=== PATIENT | female | born 1950 | race Caucasian/White ===

== ENCOUNTER 2018-03-30 15:15 | Outpatient (CLI) | payer MEDICARE, OTHER, SELFPAY ==
--- NOTE | 2018-03-30 15:08 | DI.RAD_ITS ---
SYMPTOMS/DIAGNOSIS: EVALUATE RIGHT KNEE PAIN RIGHT KNEE: Comparison is made with September,. There is now severe narrowing of the medial femorotibial joint space with [id number] appearance. There is some flattening of the medial femoral condyle and subchondral cyst formation, as well as prominent spurring. There is resulting varus angulation at the knee. Spurring is also seen at the tibial spines and patellofemoral joint. IMPRESSION: Severe degenerative changes of the medial femorotibial joint.
== END 2018-03-30 15:35 ==
PROVIDERS: PCP Family Medicine; Referring Provider Family Medicine; Visit Provider Student in an Organized Health Care Education/Training Program
DX: M25.561 Pain in right knee (principal); M17.11 Unilateral primary osteoarthritis, right knee; I10 Essential (primary) hypertension
CPT/HCPCS: 73562; 99213; 99214

== ENCOUNTER 2018-05-17 08:37 | Inpatient (IN) | payer MEDICARE, OTHER, SELFPAY ==
[2018-05-17] VITALS (14 sets, daily range): BP systolic 104–147; BP diastolic 37–81; PULSE 65–122; RESP 11–22; TEMP 36.2–36.6; O2SAT 93–97
[2018-05-17] MEDS: Lactated Ringers 1,000 ML 80 ML IV ×3 (09:20→14:48)
[2018-05-17] MEDS: Celecoxib 200 MG CAP 400 MG PO (09:24)
[2018-05-17] MEDS: Acetaminophen 500 MG TAB 1000 MG PO ×3 (09:24→20:39)
[2018-05-17] MEDS: oxyCODONE-CR 10 MG TABCR PO (09:25)
[2018-05-17] MEDS: Gabapentin 300 MG CAP PO ×2 (09:25→21:34)
[2018-05-17] MEDS: Bupivacaine 0.5% Pres-Free 30 ML VIAL (10:25)
[2018-05-17] MEDS: Bupivacaine LIPOSOME/PF 133 MG/10 ML VIAL IJ ×2 (10:25→12:32)
[2018-05-17] MEDS: Normal Saline 20 ML VIAL (12:32)
[2018-05-17] MEDS: Bupivacaine 0.25% Pres-Free 30 ML VIAL (12:32)
[2018-05-17] MEDS: Ketorolac 30 MG/ML VIAL (12:32)
--- NOTE | 2018-05-17 15:31 | NUR.NOTE ---
Nursing Note: 1440: pt arrives to room 205 via stretcher from pacu. pt is alert/oriented. pt has pope draining yellow urine. cryo cuff in place. dressing intact. iv in LH with LR. see vs for info. oriented to call block system.
--- NOTE | 2018-05-17 16:17 | PT.INIE ---
Date of service: 05/17/18 Time of Service: 14:48 PT Notes Inpatient Physical Therapy Evaluation Date: 05/17/2018 Referring Doctor: Dr. Axel Vo PT Orders: PT CONSULT: S/P right TKA Precautions: Fall. Standard. WBAT on right LE. Patient Profile/Admitting Diagnosis: Patient is a 67-year-old female seen today at POD 0 status post right TKA secondary to primary osteoarthritis of right knee. Patient seen for mobilization with weightbearing as tolerated on right LE with walker. No CPM. No knee immobilizer. PMHX: Arthritis, Cardiomyopathy, Hyperlipidemia, HTN, obesity, Status Post Carotid Endarterectomy Social History/Home Situation: Patient lives with in a 1 level house with 12 steps to enter, has an alternate flat entrance inot house through the basement in the wintertime. 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 Equipment Owned/DME: [place]. States that she has a small stool that she uses the tub for bathing. Subjective: Katty states that she feels tingling in both her legs and feet but denies pain. She s agreeable to PT evaluation. Objective: General Observation: Patient seen in bed for PT evaluation IV in the right UE. Steel catheter in place. On continuous oxygen supplementation at 2 L/min. Mental Status: Alert and oriented x3 Pain: 0/10 Vital Signs: 147/72 mmHg, 74 bpm, 18 cycles per minute, 36.4 ?C, oxygen saturation 94% at 2 L/min. ROM: Right Upper Extremity: WFL Left Upper Extremity: WFL Right Lower Extremity: Right AROM for hip flexion 0?95 degrees. Right AROM for knee flexion 0-100 degrees. All measurements taken in supine. Left Lower Extremity: WFL STRENGTH: Right Upper Extremity: WFL Left Upper Extremity: WFL Right Lower Extremity: Hip flexors 3-/5. Knee extensors 3-/5. Knee flexors 3-/5. Ankle dorsiflexors 4+/5. Left Lower Extremity: WFL Bed Mobility/Transfers: Supine to sit: CGA, minimal cues given for safe technique and BUE placement. Sit to supine: CGA, minimal cues given for safe technique and BUE placement. Able to use overhead trapeze and BLE to scoot up in bed without undue discomfort. Gait: Patient completed 3 steps forward and backward with right LE leading using step-to pattern, weight bearing as tolerated on the left LE using FWW. Buckling of right knee noted requiring minimal assist for stabilization by this PT to ensure safety. Balance: Static Sitting: Good Dynamic Sitting: Good Static Standing: Fair Dynamic Standing: Fair Special Tests: Mobility Limitations Standardized Measure [facility] AM-PAC 6 clicks Basic Mobility Inpatient Short Form: Raw Score: 15 CMS SCore: 58% Informed Consent/Education: Patient instructed in purpose of PT consult and plan of care. Assessment: Patient is a 67 year old female referred to physical therapy services with the diagnosis status post right TKA. Patient presents with clinical signs and symptoms consistent with postoperative status, as demonstrated by the following impairment level findings: 1) impaired hip and knee active range of motion on the right side 2) impaired hip and knee muscle group strength on the right side 3) impaired balance skills 4) Decreased activity tolerance 5) Decreased weightbearing on the right LE due to postoperative status Impairments are contributing to the following functional limitations: 1) Increased dependence in performing and mobility tasks 2) increase dependence and transfer tasks 3) Decrease independence in ambulation performance 4) increased completion time for all mobility ADLs Patient is assessed as a Moderate 68113 based on the following: History: 67-year-old female at POD 0 status post right TKA. Comorbidities includes history of cardiomyopathy, hyperlipidemia, hypertension, and obesity. Examination: Functional limitations as noted above above Decision Making: Moderate complexity Goals: Goals X1 week 1. Supine-Sit: Independent 2. Sit-Supine: Independent 3. Sit-Stand : Independent with FWW 4. Stand-Sit: Independent with FWW 5. Bed-Chair: Independent with FWW 6. Chair-Bed: independent with FWW 7. Gait: Independent with FWW for at least 100 feet 8. Stairs: Independent holding onto rails for at least 12 steps 9. Independent with home exercise program 10. Good balance Plan of Care/Treatment Plan: 1-2x/day, 7 days/week x 1 week. Plan of care has been reviewed with the ROLLER SETTER providing the service under Physical Therapy direction. Initiate Physical Therapy intervention for strengthening, bed mobility, transfers, gait, stairs, balance training, use of assistive device. DISCHARGE RECOMMENDATIONS: Home with FWW. Need to consider home health PT services on facility discharge in order to ensure a smooth transition to home and reduce fall risk. TREATMENT CODE/TIME: 75460, 91877, 49748 for 68 minutes from 14:48-15:56. Krystal Agosto, PT, DPT, CLT [facility]
--- NOTE | 2018-05-17 16:24 | IN_ITS ---
Date of service: 05/17/18 Time of Service: 14:48 PT Notes Inpatient Physical Therapy Evaluation Date: 05/17/2018 Referring Doctor: Dr. Aexl Vo PT Orders: PT CONSULT: S/P right TKA Precautions: Fall. Standard. WBAT on right LE. Patient Profile/Admitting Diagnosis: Patient is a 67-year-old female seen today at POD 0 status post right TKA secondary to primary osteoarthritis of right knee. Patient seen for mobilization with weightbearing as tolerated on right LE with walker. No CPM. No knee immobilizer. PMHX: Arthritis, Cardiomyopathy, Hyperlipidemia, HTN, obesity, Status Post Carotid Endarterectomy Social History/Home Situation: Patient lives with in a 1 level house with 12 steps to enter, has an alternate flat entrance inot house through the basement in the wintertime. 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 Equipment Owned/DME: [place]. States that she has a small stool that she uses the tub for bathing. Subjective: Katty states that she feels tingling in both her legs and feet but denies pain. She s agreeable to PT evaluation. Objective: General Observation: Patient seen in bed for PT evaluation IV in the right UE. Steel catheter in place. On continuous oxygen supplementation at 2 L/min. Mental Status: Alert and oriented x3 Pain: 0/10 Vital Signs: 147/72 mmHg, 74 bpm, 18 cycles per minute, 36.4 ?C, oxygen saturation 94% at 2 L/min. ROM: Right Upper Extremity: WFL Left Upper Extremity: WFL Right Lower Extremity: Right AROM for hip flexion 0?95 degrees. Right AROM for knee flexion 0-100 degrees. All measurements taken in supine. Left Lower Extremity: WFL STRENGTH: Right Upper Extremity: WFL Left Upper Extremity: WFL Right Lower Extremity: Hip flexors 3-/5. Knee extensors 3-/5. Knee flexors 3- /5. Ankle dorsiflexors 4+/5. Left Lower Extremity: WFL Bed Mobility/Transfers: Supine to sit: CGA, minimal cues given for safe technique and BUE placement. Sit to supine: CGA, minimal cues given for safe technique and BUE placement. Able to use overhead trapeze and BLE to scoot up in bed without undue disc omfort. Gait: Patient completed 3 steps forward and backward with right LE leading using step-to pattern, weight bearing as tolerated on the left LE using FWW. Buckling of right knee noted requiring minimal assist for stabilization by this PT to ensure safety. Balance: Static Sitting: Good Dynamic Sitting: Good Static Standing: Fair Dynamic Standing: Fair Special Tests: Mobility Limitations Standardized Measure [facility] AM-PAC 6 clicks Basic Mobility Inpatient Short Form: Raw Score: 15 CMS SCore: 58% Informed Consent/Education: Patient instructed in purpose of PT consult and plan of care. Assessment: Patient is a 67 year old female referred to physical therapy services with the diagnosis status post right TKA. Patient presents with clinical signs and symptoms consistent with postoperative status, as demonstrated by the following impairment level findings: 1) impaired hip and knee active range of motion on the right side 2) impaired hip and knee muscle group strength on the right side 3) impaired balance skills 4) Decreased activity tolerance 5) Decreased weightbearing on the right LE due to postoperative status Impairments are contributing to the following functional limitations: 1) Increased dependence in performing and mobility tasks 2) increase dependence and transfer tasks 3) Decrease independence in ambulation performance 4) increased completion time for all mobility ADLs Patient is assessed as a Moderate 41931 based on the following: History: 67-year-old female at POD 0 status post right TKA. Comorbidities includes history of cardiomyopathy, hyperlipidemia, hypertension, and obesity. Examination: Functional limitations as noted above above Decision Making: Moderate complexity Goals: Goals X1 week 1. Supine-Sit: Independent 2. Sit-Supine: Independent 3. Sit-Stand : Independent with FWW 4. Stand-Sit: Independent with FWW 5. Bed-Chair: Independent with FWW 6. Chair-Bed: independent with FWW 7. Gait: Independent with FWW for at least 100 feet 8. Stairs: Independent holding onto rails for at least 12 steps 9. Independent with home exercise program 10. Good balance Plan of Care/Treatment Plan: 1-2x/day, 7 days/week x 1 week. Plan of care has been reviewed with the CHIROPRACTIC PRACTICE MANAGER providing the service under Physical Therapy direction. Initiate Physical Therapy intervention for strengthening, bed mobility, transfers, gait, stairs, balance training, use of assistive device. DISCHARGE RECOMMENDATIONS: Home with FWW. Need to consider home health PT services on facility discharge in order to ensure a smooth transition to home and reduce fall risk. TREATMENT CODE/TIME: 30554, 76818, 80120 for 68 minutes from 14:48-15:56. Krystal Agosto, PT, DPT, CLT [facility]
[2018-05-17] MEDS: Celecoxib 100 MG CAP 200 MG PO (20:39)
[2018-05-17] MEDS: Aspirin 81 MG CHEW PO (20:39)
--- NOTE | 2018-05-17 20:50 | W.PM.OP ---
Date of service: 05/17/18 Time of Service: 13:50 Operative Note DATE OF PROCEDURE: 05/17/18 PRE-OP DIAGNOSIS: Right Knee Arthritis POST-OP DIAGNOSIS: same PROCEDURE: Right Total Knee Arthroplasty with Intraoperative Navigation SURGEON: Axel Vo RESIDENTIAL TREATMENT STAFF: Randal Haynes ANESTHESIA: regional and spinal ESTIMATED BLOOD LOSS: 100 PATHOLOGY: none sent TOURNIQUET TIME: 31 COMPLICATIONS: None Patient was transported to: PACU Patient's condition: stable Implants: 1. Depuy Attune Posterior Stabilized Femoral Component, Size 3 narrow 2. Depuy Attune Fixed Platform Tibial Component, Size 2 3. Depuy Attune 3 x 10 mm fixed, Stabilized Poly 4. Depuy Attune Patellar Component, Size 32 mm Indications: I have seen Madie in clinic for symptoms of knee arthritis, confirmed with radiographic findings. Done has exhausted nonoperative methods and was having significant limitations in daily function and desired better function and less pain. She previously had a left knee replacement with excellent results. I discussed the technical details of a knee replacement. I explained the risks of the procedure to include, but not limited to, bleeding, infection, pain, stiffness, fracture, damage to nerves and vessels, damage to muscles and tendons, loosening, need for repeat procedure, blood clot and cardiopulmonary demise. Despite these risks, Madie elected to proceed. Findings: There was significant signs of arthritis throughout the knee. There are large osteophytes seen around the periphery of the medial tibia with all 3 compartments being involved as well. Procedure Description: Madie was greeted in the preoperative holding area where the correct side was identified and marked. The consent was reviewed with the patient and signed. The history and physical was updated. All questions were answered. Preoperative mediacations were administered: Acetaminophen 1000mg, Celebrex 400mg, Gabapentin 300mg, and Oxycontin 10mg. An adductor canal block was then administered by the anesthesia team in the PACU. Madie was taken back to the operating room. A spinal anesthestic was then administered. The patient was placed into the supine position on the operating room table. A nonsterile tourniquet was placed high onto the leg but only used for cementing. Posts were placed for positioning during the procedure. All bony prominences were well padded. Prophylactic antibiotics in the form of cefazolin were administered. 1g of Tranxemic Acid was given intravenously within 30 minutes of incision. The right leg was then prepped with Chloraprep and draped in a standard fashion with impervious stockinette and extremity drape with Iodine impregnated skin protection. A timeout to confirm correct identity, side and site, procedure, allergies, anesthesia, and medical concerns was performed. With the knee in some flexion, a midline incision was made overlying the knee. Full thickness skin flaps were raised once the extensor mechanism was encountered. These were raised medially and laterally. Any bleeding was controlled with electrocautery. Once the extensor mechanism was fully exposed, a medial parapatellar arthrotomy was performed in a flexed position. All bleeding from the arthrotomy and the geniculate arteries was coagulated. A medial subperiosteal peel was performed with electrocautery to the midcoronal plane. Due to the significant varus deformity the entire medial tibial plateau was exposed. The fat pad was removed while keeping the patellar tendon protected. The anterior distal femur synovium was removed for later visualization. The ACL and PCL were resected and the anterior horn of the lateral meniscus was transected. The knee was then flexed with the patella everted. Large osteophytes from the tibia were removed. Large osteophytes from the femur were removed. A single starting pin was then placed 1cm anterior to the PCL insertion and the notch in the direction of the femoral head. The OrthoAlign device was applied over the pin. It was oriented to be in line with the epicondylar axis and the trochlear groove. It was then pinned into place. The navigation computer was then turned on and calibrated. The distal femur cut was set at 0 degrees varus/valgus and 2.5 degrees flexion. The distal femur cutting guide then was positioned for a 9mm cut. The distal femur was cut with an oscillating saw while protecting the soft tissues. The tibia was then addressed. The OrthoAlign device was placed over the tibial tubercle and medial tibia and secured into position. Once again, OrthoAlign was calibrated and then set for a 0 degree varus/valgus cut and 3 degrees of posterior slope. With this locked into position, the cut thickness stylus was used to assess cut thickness. The medial side, most involved side, was set for a 2mm cut. This was then held in position and pinned into place with 2 additional pins and a cross pin for stability. The medial and lateral collateral ligaments were protected and the cut was performed. With this completed, it was assessed and noted to be of appropriate dimensions. The guide and OrthoAlign was removed. A spacer block was inserted and the knee was brought into extension. The 8 mm spacer block provided full extension, without hyperextension and with stability of both the medial and lateral collateral ligaments was assessed. The pins from the femur and the tibia were then removed. The distal femur was then sized. The anterior stylus was placed onto the lateral ridge of the anterior femur. This indicated a size 3 femur. The external rotation of the guide was adjusted to 3 degrees to match the epicondylar axis, perpendicular to Zavala?s line. The 4-in-1 cutting guide was the placed. The posterior medial femur cut was evaluated and appeared of good thickness. The spacer block was inserted underneath the cutting guide and stability was confirmed in 90 degrees of flexion. An emma wing was used to confirm appropriate position of the anterior cut to avoid notching. This cutting guide was ensured to be flush on the cut surface and then pinned into place with headed pins. While protecting the soft tissues, quad tendon, and collateral ligaments, the anterior and posterior cuts were performed with a saw. The central two pins were removed and the posterior and anterior chamfers were cut next. The notch-cutting guide was placed. This was pinned to lateralize the femoral component as much as possible while keeping it flush on the cut surface. This was then pinned into position. A reciprocating saw was used to make the notch cut. A rasp smoothed the cut surfaces. A trial posterior stabilized femoral component was then inserted, impacted down to the cut surfaces, and the lug holes were drilled. A provisional trial tibial component was placed and the knee was brought through range of motion. The polyethylene was trialed until there was good flexion and extension with excellent stability to the medial and lateral collaterals. The patella was tracking without thumbs. A portion of Mady's tubercle was released to the initial cut which provided some minor laxity with valgus stressing at full extension, approximately 2 mm. The tibial cut surface was fully exposed. The medial and lateral menisci were removed. The tibia was then sized as a 2. The tibia had been previously marked during trialing to correspond to the center of the tibial component to help with rotation. The trial was aligned to this randal, approximately rotated to the medial 1/3rd of the tibial tubercle. The trial was pinned into place. The tibia was prepared with a reamer and a keel punch. The knee was then brought into extension and the patella was measured as 21 mm. Using the patellar clamp and cut guide, this was resected to a flat surface with at least 13mm of thickness remaining. The size 32 mm patella fit the best. This was oriented and then clamped into position. The lugs were drilled. The trial components were removed. The final components, except for the polyethylene were opened on the back table. The periosteal and capsular tissues, especially posteriorly, around the knee were then systematically injected with a periarticular cocktail consisting of 50cc 0.25% Marcaine, 30mg Ketorolac, 20cc of Exparal and 50cc of injectable saline. The tourniquet was then inflated to 275mmHg. The knee was thoroughly irrigated with a pulse lavage and dried. On the back table, with the implants opened, the cement was mixed. 2 batches of antibiotic laden cement were prepared with vacuum assistance. After the cement was ready a small amount was placed on to the back side of the tibial component at the keel. A small amount was placed onto the posterior flange of the femur. Cement was manual pressurized and impregnated into the cut surface of the tibia. The tibial component was then inserted into the cut surface and impacted into position. Excess cement was removed and the component was reimpacted. Again, excess cement was removed and our attention was then turned to the femur. The femoral cut surface was once again dried and cement was manually impacted into the cut surface. The femoral component was lined with the lug holes and impacted. Excess cement was removed. It was ensured to be down against the cut surface. The trial polyethylene was then inserted and the leg was brought out into full extension for the duration of the cement curing process, approximately 15min. Cement was lastly manually impacted into the cut surface of the patella and the patellar button was clamped into position and held. During this process attention was turned to the gutters of the knee and for all interfaces for any excess cement. After the cement had finally cured, approximately 15min, the clamp was removed from the patella and the knee was taken through range of motion. A size 10 mm polyethylene component provided the best range of motion and stability with less than 2mm gapping with medial and lateral stress and full extension without significant hyperextension. The patella was tracking with a no-thumbs technique. The trial poly was removed and once again the knee was checked for any loose, excess, or errant cement. The poly component was then inserted and impacted into position after cleaning and drying the tibial tray. The capsule was then reapproximated with a No. 1 Vicryl at multiple locations. The capsule was finally closed with a No. 2 Stratafix, barbed suture. The tourniquet was then released and the arthrotomy appeared watertight without significant bleeding. The second dosing of 1g TXA was started. Deep tissues were then reapproximated with 0 Vicryl and 2-0 Vicryl. The skin was closed with a running 3-0 Monocryl in a subcuticular fashion. This was reinforced with skin glue. A Mepilex silver dressing was applied along with a [id number] EROS wrap. A CryoCuff was applied. Madie was transferred to the hospital bed without difficulty an suffering no apparent complication. Madie has a good prognosis. Physical therapy will start today and without restrictions, weight-bearing as tolerated. Aspirin 81mg BID will be used for DVT prophylaxis.
[2018-05-18] MEDS: Lactated Ringers 1,000 ML 80 ML IV (02:48)
[2018-05-18 03:40] VITALS: BP 143/61; PULSE 63; RESP 16; TEMP 36.4; O2SAT 96
[2018-05-18] MEDS: HYDROmorphone 2 MG/ML VIAL 0.5 MG IVP ×2 (03:53→23:11)
[2018-05-18] MEDS: Normal Saline Flush 10 ML SYR IV ×2 (03:53→10:06)
[2018-05-18] MEDS: oxyCODONE 5 MG TAB PO ×4 (04:41→15:54)
--- NOTE | 2018-05-18 07:11 | PDOC.CMIN ---
- If Service Date Differs Date of service: 05/18/18 Time of Service: 07:11 Care Management Initial Assess REASON FOR HOSPITALIZATION:: (R) Knee DJD PAST MEDICAL HISTORY/PAST SURGICAL HISTORY:: Arthritis. Cardiomyopathy. Hyperlipidemia. Hypertension. Obesity. Abdominal hysterectomy. ENDARTERECTOMY, CAROTID (02/15/13). Ligation of fallopian tube PREVIOUS FUNCTIONAL STATUS/SOCIAL/FAMILY SUPPORTS:: Madie resides with her Girish in [place], they have been for 10 years. Madie states that she has one son, and her has two sons all whom are supportive. 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 Madie keeps herself busy with latter day activities in the community. She is independent in the community, drives, and manages ADL's CURRENT FUNCTIONAL STATUS:: Currently Madie is sitting up in bed reading when this clinical writer visits this morning. She is pleasant and receptive to discussion. ADVANCE DIRECTIVES:: On file Girish Woodall is agent. Caesar Celeste is alternate Has patient been provided with information about the portal?: Yes Did the patient sign up for the portal?: No CODE STATUS:: Full Code INSURANCE COVERAGE / FINANCIAL ISSUES:: Medicare, [employer] CURRENT HOME/COMMUNITY SERVICES/EQUIPMENT:: Currently Madie has has no services in the community. She has a FWW, Cane, and stool at home. PRIMARY CARE PHYSICIAN:: Dr. Helm POTENTIAL DISCHARGE NEEDS:: F/U appointment with Dr. Vo. PT - Outpatient PT with [facility] [place] PATIENT/FAMILY EDUCATION NEEDS:: Review DC instructions, any limitations, and ongoing DC planning discussion. Discuss 'Ask Me Three' ANTICIPATED BARRIERS TO DISCHARGE:: None identified at this time. TRANSPORTATION:: Via private vehicle with PLAN:: Madie will return home once medically cleared with outpatient PT through [facility] in [place]. Madie has all necessary DME at this time. She will F/U with Dr. Vo and plan of care as prescribed. Girish to transport when ready.
--- NOTE | 2018-05-18 07:31 | INITIAL_ITS ---
- If Service Date Differs Date of service: 05/18/18 Time of Service: 07:11 Care Management Initial Assess REASON FOR HOSPITALIZATION:: (R) Knee DJD PAST MEDICAL HISTORY/PAST SURGICAL HISTORY:: Arthritis. Cardiomyopathy. Hyperlipidemia. Hypertension. Obesity. Abdominal hysterectomy. ENDARTERECTOMY, CAROTID (02/15/13). Ligation of fallopian tube PREVIOUS FUNCTIONAL STATUS/SOCIAL/FAMILY SUPPORTS:: Madie resides with her mike Stout in [place], they have been for 10 years. Madie states that she has one son, and her has two sons all whom are supportive. 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 Madie keeps herself busy with caodaism activities in the community. She is independent in the community, drives, and manages ADL's CURRENT FUNCTIONAL STATUS:: Currently Madie is sitting up in bed reading when this medical writer visits this morning. She is pleasant and receptive to discussion. ADVANCE DIRECTIVES:: On file Girish Woodall is agent. Caesar Celeste is alternate Has patient been provided with information about the portal?: Yes Did the patient sign up for the portal?: No CODE STATUS:: Full Code INSURANCE COVERAGE / FINANCIAL ISSUES:: Medicare, [employer] CURRENT HOME/COMMUNITY SERVICES/EQUIPMENT:: Currently Madie has has no services in the community. She has a FWW, Cane, and stool at home. PRIMARY CARE PHYSICIAN:: Dr. Helm POTENTIAL DISCHARGE NEEDS:: F/U appointment with Dr. Vo. PT - Outpatient PT with [facility] [place] PATIENT/FAMILY EDUCATION NEEDS:: Review [place] instructions, any limitations, and ongoing DC planning discussion. Discuss 'Ask Me Three' ANTICIPATED BARRIERS TO DISCHARGE:: None identified at this time. TRANSPORTATION:: Via private vehicle with PLAN:: Madie will return home once medically cleared with outpatient PT through [facility] in [place]. Madie has all necessary DME at this time. She will F/U with Dr. Vo and plan of care as prescribed. Girish to transport when ready.
[2018-05-18 08:05] VITALS: BP 146/78; PULSE 69; RESP 18; TEMP 36.5; O2SAT 96
[2018-05-18] MEDS: Celecoxib 100 MG CAP 200 MG PO ×2 (08:12→19:40)
[2018-05-18] MEDS: Lisinopril 20 MG TAB 40 MG PO (08:13)
[2018-05-18] MEDS: Multivitamin TAB 1 TAB PO (08:13)
[2018-05-18] MEDS: Acetaminophen 500 MG TAB 1000 MG PO ×3 (08:13→19:40)
[2018-05-18] MEDS: Hydrochlorothiazide 25 MG TAB PO (08:13)
[2018-05-18] MEDS: Atorvastatin 10 MG TAB PO (08:13)
[2018-05-18] MEDS: Aspirin 81 MG CHEW PO ×2 (08:14→19:40)
[2018-05-18] MEDS: Docusate Sodium 100 MG CAP PO (08:14)
[2018-05-18 11:47] VITALS: BP 146/78; PULSE 69; RESP 18; TEMP 36.5; O2SAT 97
--- NOTE | 2018-05-18 13:43 | PT.INTREAT ---
Date of service: 05/18/18 Time of Service: 01:10 PT Notes Inpatient Physical Therapy Treatment Note [facility] Date: 05/18/18 PRECAUTIONS: WBAT R LE SUBJECTIVE: Pt reports that she just had mauro medication not too long ago so she is doing well this afternoon. OBJECTIVE: Sit-stand: SBA Stand-sit: SBA GAIT Assistive Device: FWW Weight bearing: WBAT R LE Assist: SBA Distance: 150ft THEREX: Pt completed LE ther ex while seated as per flow sheet. ASSESSMENT: Pt tolerated today's session well. Pt was able to tolerate more ambulation today and was motivated during her session. PLAN: Cont as per PT POC. TREATMENT CODE/TIME: 1:10-1:30 (20) TA
--- NOTE | 2018-05-18 14:36 | PT.INTREAT ---
Date of service: 05/18/18 Time of Service: 14:36 PT Notes Inpatient Physical Therapy Treatment Note [facility] Date: 05/18/18 PRECAUTIONS: WBAT R SUBJECTIVE: Madie states that she is feeling more clear than yesterday afternoon. She is agreeable to participating in PT. OBJECTIVE: PAIN: No complaints of pain BED MOBILITY/TRANSFERS Supine?sit: S Sit-stand: SBA Stand-sit: SBA GAIT Assistive Device: FWW Weight bearing: WBAT R Assist: SBA Distance: 100' THEREX: Patient completed a lower extremity strengthening and stabilization program, in a supine position, as per flow sheet. Patient's right knee AROM is 0-110 degrees. Patient ends with cryocuff to right knee ASSESSMENT: Patient tolerated session without complaint. Patient was able to tolerate a progression in gait distance with FWW support and SBA. Patient would benefit from continued gait and transfer training as well as strengthening for improved mobility. PLAN: Continue with PTs POC TREATMENT CODE/TIME: Session 1: 30 minutes; 21835 x2
--- NOTE | 2018-05-18 14:48 | CHAPLAIN ---
Madie was sitting up in her chair when I visited. She was very pleasant and easily engaged in a conversation. She is a member of the [employer] in [place]. Her vp data just returning from a trip, so Madie said he didn't want to ask him to visit since she is likely going home tomorrow. This is Madie's second knee surgery, so she said she knew what what to expect.
[2018-05-18 15:56] VITALS: BP 133/79; PULSE 60; RESP 18; TEMP 36.5; O2SAT 98
--- NOTE | 2018-05-18 17:23 | PHARADMIT ---
Admission Pharmacy Clinical Review RIGHT KNEEE DJD Code Status Full Code Current Weight Wgt-76 kg Renally Cleared and Narrow Therapeutic Index Meds CrCl~ 38.2 ML/min Meds-OK QTc Value / Action Taken QTc-425 na BP Control, Fever BP- 133/79 na Electrolytes reviewed none DVT Prophylaxis ASA Opiate Usage / Scheduled Bowel Regimen Ordered Yes Yes Plt/SCr for Heparin / Enoxaparin none none H/H stable, WBC/Bands none Antibiotic appropriateness Cefazolin Cultures and Sensitivities none Surgical ABX d/c within 24 hr Yes DM control / Insulin Dosing NA Heart Failure (Check EF%) (EROS's, B-Block, Diuretics) HCTZ, Lisinopril IV to PO Switch no Home Meds Reviewed Yes Home Meds Not Ordered Diclofenac, Misoprostol, Comments
[2018-05-18 20:23] VITALS: BP 135/54; PULSE 64; RESP 18; TEMP 36.6; O2SAT 95
--- NOTE | 2018-05-18 21:06 | W.PM.PROGNOT ---
Date of Service Date of service: 05/18/18 Time of Service: 12:07 Assessment and Plan (1) Osteoarthritis of right knee: Current visit: No Status: Acute Madie is a 67-year-old status post right knee replacement. She is doing well. She has been able to ambulate some. She does report having some apprehension and concern about stairs. We will continue to work with physical therapy. Her vital signs are stable. Continue aspirin for DVT prophylaxis. Likely discharge home tomorrow. Qualifiers: Osteoarthritis type: primary Qualified Code(s): M17.11 - Unilateral primary osteoarthritis, right knee Subjective Interval history since last seen: Madie reports been doing well. She has no major pain complaints. She has been able to ambulate. She denies any numbness or tingling. She has no chest pain or shortness of breath. Exam Narrative Exam Narrative: No acute distress. Alert and oriented x3. Evaluation of the right knee shows a clean dry and intact dressing. She is able to straight leg raise. She has intact ankle dorsiflexion and plantar flexion as well as great toe extension and flexion. Sensation intact light touch over the superficial and deep peroneal nerves and tibial nerve. Objective Objective Clinical Data: Vital Signs Temperature 36.6 C 05/18/18 20:23 Temperature Source Tympanic 05/18/18 20:23 Pulse 64 05/18/18 20:23 Pulse Rhythm Regular 05/18/18 20:28 Respiratory Rate 18 05/18/18 20:23 Respiratory Effort Non-Labored 05/18/18 20:28 Respiratory Depth Normal 05/18/18 20:28 Respiratory Pattern Normal 05/18/18 20:28 Blood Pressure 135/54 L 05/18/18 20:23 Pulse Oximetry 95 05/18/18 20:23 Respiratory End-tidal CO2 34 05/17/18 13:50 Oxygen Delivery Method Room Air 05/18/18 20:23 Oxygen Flow Rate 0 05/18/18 20:23 Pain Level 5 05/18/18 19:40 Comment 05/18/18 03:40 Intake & Output 05/17/18 05/18/18 05/18/18 23:59 11:59 23:59 Intake Total 1776.333 / 5702.309 0741 / 2762 590 / 2762 Output Total 1450 / 1450 750 / 1700 950 / 1700 Balance 326.333 / 715.981 7427 / 1062 -360 / 1062 Intake: IV 1776.333 / 5258.391 8488 / 1572 100 / 1572 Oral 700 / 1190 490 / 1190 Output: Urine 1350 / 1350 750 / 1700 950 / 1700 Estimated Blood Loss 100 / 100 Other: Urine Color Yellow Yellow Yellow Urine Appearance Clear Clear Clear Urine Odor None Emesis Description None Voiding Methods Toilet
--- NOTE | 2018-05-18 21:12 | PGE_ITS ---
Date of Service Date of service: 05/18/18 Time of Service: 12:07 Assessment and Plan (1) Osteoarthritis of right knee: Current visit: No Status: Acute Madie is a 67-year-old status post right knee replacement. She is doing well. She has been able to ambulate some. She does report having some apprehension and concern about stairs. We will continue to work with physical therapy. Her vital signs are stable. Continue aspirin for DVT prophylaxis. Likely discharge home tomorrow. Qualifiers: Osteoarthritis type: primary Qualified Code(s): M17.11 - Unilateral primary osteoarthritis, right knee Subjective Interval history since last seen: Madie reports been doing well. She has no major pain complaints. She has been able to ambulate. She denies any numbness or tingling. She has no chest pain or shortness of breath. Exam Narrative Exam Narrative: No acute distress. Alert and oriented x3. Evaluation of the right knee shows a clean dry and intact dressing. She is able to straight leg raise. She has intact ankle dorsiflexion and plantar flexion as well as great toe extension and flexion. Sensation intact light touch over the superficial and deep peroneal nerves and tibial nerve. Objective Objective Clinical Data: Vital Signs Temperature 36.6 C 05/18/18 20:23 Temperature Source Tympanic 05/18/18 20:23 Pulse 64 05/18/18 20:23 Pulse Rhythm Regular 05/18/18 20:28 Respiratory Rate 18 05/18/18 20:23 Respiratory Effort Non-Labored 05/18/18 20:28 Respiratory Depth Normal 05/18/18 20:28 Respiratory Pattern Normal 05/18/18 20:28 Blood Pressure 135/54 L 05/18/18 20:23 Pulse Oximetry 95 05/18/18 20:23 Respiratory End-tidal CO2 34 05/17/18 13:50 Oxygen Delivery Method Room Air 05/18/18 20:23 Oxygen Flow Rate 0 05/18/18 20:23 Pain Level 5 05/18/18 19:40 Comment 05/18/18 03:40 Intake & Output 05/17/18 05/18/18 05/18/18 23:59 11:59 23:59 Intake Total 1776.333 / 8246.275 1051 / 2762 590 / 2762 Output Total 1450 / 1450 750 / 1700 950 / 1700 Balance 326.333 / 648.800 0805 / 1062 -360 / 1062 Intake: IV 1776.333 / 4268.766 2260 / 1572 100 / 1572 Oral 700 / 1190 490 / 1190 Output: Urine 1350 / 1350 750 / 1700 950 / 1700 Estimated Blood Loss 100 / 100 Other: Urine Color Yellow Yellow Yellow Urine Appearance Clear Clear Clear Urine Odor None Emesis Description None Voiding Methods Toilet
[2018-05-18] MEDS: Gabapentin 300 MG CAP PO (21:41)
[2018-05-19 01:17] VITALS: BP 111/68; PULSE 63; RESP 18; TEMP 36.4; O2SAT 96
[2018-05-19 03:23] VITALS: BP 130/68; PULSE 68; RESP 16; TEMP 36.7; O2SAT 98
[2018-05-19] MEDS: oxyCODONE 5 MG TAB PO ×2 (06:22→11:38)
[2018-05-19 07:20] VITALS: BP 142/56; PULSE 72; RESP 18; TEMP 36.9; O2SAT 95
[2018-05-19] MEDS: Atorvastatin 10 MG TAB PO (08:06)
[2018-05-19] MEDS: Celecoxib 100 MG CAP 200 MG PO (08:06)
[2018-05-19] MEDS: Lisinopril 20 MG TAB 40 MG PO (08:06)
[2018-05-19] MEDS: Aspirin 81 MG CHEW PO (08:07)
[2018-05-19] MEDS: Acetaminophen 500 MG TAB 1000 MG PO ×2 (08:07→13:44)
[2018-05-19] MEDS: Multivitamin TAB 1 TAB PO (08:08)
[2018-05-19] MEDS: Hydrochlorothiazide 25 MG TAB PO (08:08)
[2018-05-19 10:43] VITALS: BP 130/79; PULSE 67; RESP 17; TEMP 36.8; O2SAT 95
[2018-05-19] MEDS: Normal Saline 250 ML 500 ML IV (10:48)
[2018-05-19 11:20] VITALS: BP 131/57; PULSE 72; RESP 18; TEMP 37.2; O2SAT 96
--- NOTE | 2018-05-19 12:22 | PT.INTREAT ---
Date of service: 05/19/18 Time of Service: 12:22 PT Notes Inpatient Physical Therapy Treatment Note [facility] Date: 05/19/18 PRECAUTIONS: WBAT R SUBJECTIVE: Nini reports that she is experiencing R knee soreness this morning. OBJECTIVE: PAIN: See subjective portion of this note. BED MOBILITY/TRANSFERS Sit-stand: S Stand-sit: S GAIT Assistive Device: FWW Weight bearing: WBAT on R Assist: SBA Distance: 150' THEREX: Patient completed a lower extremity strengthening and stabilization program, in a seated position, as per flow sheet. Patient ends with Cryo/Cuff to right knee. STAIRS: Up/down 3x4 and 2x6 using B rails and a step to pattern with supervision. Following stair training patient reports feeling dizzy and lightheaded, requesting to sit down. Patient was given water and vital signs were taken in a supine position. Blood pressure: 116/81, heart rate: 77. ASSESSMENT: Patient tolerated session with some complaints of dizziness and lightheadedness. Patient was able to recover following seated and supine rest break, vital signs were within normal limits. Patient was able to tolerate a progression in her ther ex program today. Patient would benefit from continued gait training and conditioning for improved activity tolerance. PLAN: As per primary PT TREATMENT CODE/TIME: 30 minutes; 24366, 31021
--- NOTE | 2018-05-19 13:41 | DSE_ITS ---
Date of service: 05/19/18 Time of Service: 13:40 DS: Diagnosis Discharge Diagnosis (1) Osteoarthritis of right knee: Status: Acute Discharge Plan Disposition Patient Disposition: HOME Condition: Good Discharge Details Reason For Visit: RIGHT KNEE DJD Admit Date/Time: 05/17/18 08:37 Admit Provider: Axel Vo Attending Provider: Axel Vo Primary Care Provider: Dano Helm Hospital Course Hospital Course: Patient was admitted to the medical/surgical floor following the procedure. It was tolerated well without any notable medical, surgical, or anesthetic complications. Mobilization began postoperatively. The pope catheter was removed and voiding spontaneously. Vitals were stable. Physical therapy worked with the patient and was cleared for discharge home. No acute medical issues. Home Meds and New Rx's Prescriptions: New docusate sodium [Colace] 100 mg Capsule 100 mg PO BID PRN PRN (Reason: Constipation) Qty: 0 RF: 0 aspirin 81 mg Tablet,Chewable 81 mg PO BID Qty: 60 RF: 0 celecoxib 200 mg capsule 200 mg PO BID PRN (Reason: pain) Qty: 60 RF: 1 acetaminophen 500 mg tablet 1,000 mg PO Q8H PRN (Reason: pain) Qty: 90 RF: 3 oxycodone 5 mg tablet 5 mg PO Q4H Qty: 18 RF: 0 gabapentin 300 mg capsule 300 mg PO QHS Qty: 7 RF: 0 Continued lisinopril 40 MG tablet 40 mg PO DAILY Qty: 90 RF: 4 multivitamin [Daily Multi-Vitamin] 1 EACH tablet 1 ea PO DAILY RF: 0 ranitidine HCl 75 MG tablet 75 mg PO daily prn RF: 0 hydrochlorothiazide 25 mg tablet 25 mg PO DAILY Qty: 90 RF: 3 calcium carbonate [Tums] 300 mg (750 mg) Tablet,Chewable 600 mg PO PRN PRNRF: 0 Emergen-C 1,000 mg Powder Effervescent In Packet 1 ea PO DAILY PRN PRNRF: 0 acetaminophen [Tylenol Extra Strength] 500 mg Tablet 1,000 mg PO Q6H PRNRF: 0 atorvastatin 10 mg tablet 10 mg PO QAM RF: 0 Discontinued aspirin 81 MG tablet,chewable 81 mg PO DAILY RF: 0 diclofenac sodium 75 mg tablet,delayed release (DR/EC) 75 mg PO BID Qty: 180 RF: 3 misoprostol 200 mcg tablet 200 mcg PO BID Qty: 180 RF: 3 Discharge Instructions Additional Instructions: Dr. Vo?s Total Knee Discharge Instructions Activity: The most important activity is to walk. You should try to take short walks a few times a day. It is important that when resting you work on keeping the knee straight. Avoid putting a pillow behind the knee as this will encourage flexion. Work on range of motion exercises as provided by Physical Therapy. - Start outpatient physical therapy within 2 weeks. - You should wear the KATHERINE hose on both legs for 4 weeks. Dressing: Keep the surgical dressing in place for at least one week. After the first week it may be removed and replace with light gauze and tape or nothing. It may get wet after 3 days but avoid soaking the dressing. If it gets wet, just lightly pat dry. Medications: - You should take Tylenol and anti-inflammatory (Celebrex) as your primary pain control medications. If the Celebrex isnot covered you can continue with the Diclofenac and Misoprostol but do not take both. - You have been prescribed a stronger pain medication (Oxycodone) for breakthrough pain, take as needed as prescribed. - You will be taking Aspirin 81mg twice a day for DVT prevention unless instructed otherwise. - If you have constipation you should take Colace or Miralax (both [id number]). It takes most people 3-4 days to have a bowel movement. Follow-up: 2 weeks Stand Alone Forms: Nursing Discharge Form Referrals: Axel Vo MD [ [facility] STAFF PHYSICIAN] - Activity:: Activity as Tolerated Equipment/Supplies:: Walker Diet:: As Tolerated Discharge Orders Discharge Orders: Discharge Order (Routine); Ordered 05/19/18 Ordered By: Axel Vo DS: Data Vitals/I&O Vitals and I&O: Vital Signs Temperature 37.2 C 05/19/18 11:20 Temperature Source Tympanic 05/19/18 11:20 Pulse 72 05/19/18 11:20 Pulse Rhythm Regular 05/19/18 07:55 Respiratory Rate 18 05/19/18 11:20 Respiratory Effort 05/19/18 07:55 Respiratory Depth Normal 05/19/18 07:55 Respiratory Pattern Normal 05/19/18 07:55 Blood Pressure 131/57 L 05/19/18 11:20 Pulse Oximetry 96 05/19/18 11:20 Respiratory End-tidal CO2 34 05/17/18 13:50 Oxygen Delivery Method Room Air 05/19/18 11:20 Oxygen Flow Rate 0 05/19/18 11:20 Pain Level 5 05/19/18 06:22 Comment 05/19/18 10:43 Intake & Output 05/18/18 05/19/18 05/19/18 23:59 11:59 23:59 Intake Total 590 / 2762 440 / 440 0 / 440 Output Total 1450 / 2200 1949 / 1950 Balance -860 / 562 -1510 / -1510 0 / -1510 Intake: IV 100 / 1572 Oral 490 / 1190 440 / 440 0 / 440 Output: Urine 1450 / 0 1949 / 1949 Other: Urine Color Pale Dark Pastora Yellow Urine Appearance Clear Clear Urine Odor None None Voiding Methods Toilet Toilet [facility] Medical History Arthritis Cardiomyopathy Hyperlipidemia Hypertension Obesity Surgical History Abdominal hysterectomy ENDARTERECTOMY, CAROTID (02/15/13) Ligation of fallopian tube Family History Mother Essential hypertension CAD (coronary artery disease) Alzheimer disease Hyperlipidemia Asthma Father Alcohol abuse Heart disease Sister Essential hypertension Hyperlipidemia Asthma Sister Essential hypertension Asthma Brother Hyperlipidemia Asthma Grandfather Diabetes Grandfather No problems noted. Grandmother OA (osteoarthritis) Grandmother RA (rheumatoid arthritis) Son No problems noted. MATERNAL FAMILY HISTORY Diabetes Essential hypertension Arthritis Hyperlipidemia Asthma Social History Smoking and Tabacco status: Never
--- NOTE | 2018-05-19 13:56 | PDOC.CMDIS ---
- If Service Date Differs Date of service: 05/19/18 Time of Service: 13:56 LACE Index Scoring Tool - Questions: Length of Stay (in days): 2 Acuity (Admit via E.D.?): No E.D. Visits: 0 - Answers: Total Score: 2 Risk of Readmission: Low Risk Care Management Discharge Reason for Hospitalization: (R) Knee DJD Discharge Plan: Madie will return home today with no services. She will F/U with Dr. Vo and plan of care as prescribed. Madie states that she will have outpatient PT through [facility] [place] at [place]. Her Girish will transport her home. Patient/Family Education Needs: Review [place] instructions, any limitations, and discuss 'Ask Me Three' Services Needed at Discharge: Physical Therapy ([facility])
--- NOTE | 2018-05-19 14:00 | CMDISCH_ITS ---
- If Service Date Differs Date of service: 05/19/18 Time of Service: 13:56 LACE Index Scoring Tool - Questions: Length of Stay (in days): 2 Acuity (Admit via E.D.?): No E.D. Visits: 0 - Answers: Total Score: 2 Risk of Readmission: Low Risk Care Management Discharge Reason for Hospitalization: (R) Knee DJD Discharge Plan: Madie will return home today with no services. She will F/U with Dr. Vo and plan of care as prescribed. Madie states that she will have outpatient PT through [facility] in [place] at [place]. Her Girish will transport her home. Patient/Family Education Needs: Review [place] instructions, any limitations, and discuss 'Ask Me Three' Services Needed at Discharge: Physical Therapy ([facility])
--- NOTE | 2018-05-19 16:14 | PT.DS ---
Date of service 05/19/18 Time of Service 13:54 PT Notes Inpatient Physical Therapy Discharge Summary Dates: 05/19/2018 Dates of Service: 05/17/2018?05/19/2018 SUBJECTIVE: Katty states that tingling in both feet are now gone. She does admit that she is still got a little lightheaded during the second stair activity this afternoon but that subsided with rest. She looks forward to going home today with plan to do outpatient physical therapy. I am going to take it easy at home, so I will be okay OBJECTIVE: Pain: 4-5/10 on left knee after walking about 150 feet using FWW ROM: Right Upper Extremity: WFL Left Upper Extremity: WFL Right Lower Extremity: Right AROM for hip flexion 0?100 degrees. Right AROM for knee flexion 0-115 degrees, no extensor lag noted. All measurements taken while reclined on a chair. Left Lower Extremity: WFL STRENGTH: Right Upper Extremity: WFL Left Upper Extremity: WFL Right Lower Extremity: Hip flexors 3+/5. Knee extensors 3+/5. Knee flexors 4-/5. Ankle dorsiflexors 5/5. Left Lower Extremity: WFL BED MOBILITY/TRANSFERS: Supine-sit modified independent Sit-supine modified independent Sit-stand modified independent Stand-sit modified independent Bed-Chair supervision Chair-bed supervision GAIT: Patient was able to tolerate 150 feet of level surface ambulation using FWW x 3 reps, twice in the morning and once in the afternoon with decreasing complaint of lightheadedness, vision assist only. She also managed to complete 3 steps of low rise stairs and 2 steps of high rise stairs at 6 inches height while holding onto both rails with pain level increasing to 5/10 on the left knee. Balance: Static Sitting: Good Dynamic Sitting: Good Static Standing: Fair Dynamic Standing: Fair Mobility Limitations Standardized Measure [facility] AM-PAC 6 clicks Basic Mobility Inpatient Short Form: Raw Score: 15 CMS SCore: 58% deficit Goals X1 week 1. Supine-Sit: Independent MET 2. Sit-Supine: Independent MET 3. Sit-Stand : Independent with FWW MET 4. Stand-Sit: Independent with FWW MET 5. Bed-Chair: Independent with FWW NOT MET 6. Chair-Bed: independent with FWW NOT MET 7. Gait: Independent with FWW for at least 100 feet NOT MET 8. Stairs: Independent holding onto rails for at least 12 steps NOT MET 9. Independent with home exercise program MET 10. Good balance NOT MET DISCHARGE PLAN/RECOMMENDATIONS: To home with FWW. Plans to proceed with outpatient physical therapy to regain prior level of function. TREATMENT CODE/TIME: 72840 for 52 minutes getting at 9:32 AM and at 1:54 PM. Krystal Agosto, PT, DPT, CLT [facility]
--- NOTE | 2018-05-19 16:18 | PTDS_ITS ---
Date of service 05/19/18 Time of Service 13:54 PT Notes Inpatient Physical Therapy Discharge Summary Dates: 05/19/2018 Dates of Service: 05/17/2018?05/19/2018 SUBJECTIVE: Katty states that tingling in both feet are now gone. She does admit that she is still got a little lightheaded during the second stair activity this afternoon but that subsided with rest. She looks forward to going home today with plan to do outpatient physical therapy. I am going to take it easy at home, so I will be okay OBJECTIVE: Pain: 4-5/10 on left knee after walking about 150 feet using FWW ROM: Right Upper Extremity: WFL Left Upper Extremity: WFL Right Lower Extremity: Right AROM for hip flexion 0?100 degrees. Right AROM for knee flexion 0-115 degrees, no extensor lag noted. All measurements taken while reclined on a chair. Left Lower Extremity: WFL STRENGTH: Right Upper Extremity: WFL Left Upper Extremity: WFL Right Lower Extremity: Hip flexors 3+/5. Knee extensors 3+/5. Knee flexors 4- /5. Ankle dorsiflexors 5/5. Left Lower Extremity: WFL BED MOBILITY/TRANSFERS: Supine-sit modified independent Sit-supine modified independent Sit-stand modified independent Stand-sit modified independent Bed-Chair supervision Chair-bed supervision GAIT: Patient was able to tolerate 150 feet of level surface ambulation using FWW x 3 reps, twice in the morning and once in the afternoon with decreasing complaint of lightheadedness, vision assist only. She also managed to complete 3 steps of low rise stairs and 2 steps of high rise stairs at 6 inches height while holding onto both rails with pain level increasing to 5/10 on the left knee. Balance: Static Sitting: Good Dynamic Sitting: Good Static Standing: Fair Dynamic Standing: Fair Mobility Limitations Standardized Measure [facility] AM-PAC 6 clicks Basic Mobility Inpatient Short Form: Raw Score: 15 CMS SCore: 58% deficit Goals X1 week 1. Supine-Sit: Independent MET 2. Sit-Supine: Independent MET 3. Sit-Stand : Independent with FWW MET 4. Stand-Sit: Independent with FWW MET 5. Bed-Chair: Independent with FWW NOT MET 6. Chair-Bed: independent with FWW NOT MET 7. Gait: Independent with FWW for at least 100 feet NOT MET 8. Stairs: Independent holding onto rails for at least 12 steps NOT MET 9. Independent with home exercise program MET 10. Good balance NOT MET DISCHARGE PLAN/RECOMMENDATIONS: To home with FWW. Plans to proceed with outpatient physical therapy to regain prior level of function. TREATMENT CODE/TIME: 02969 for 52 minutes getting at 9:32 AM and at 1:54 PM. Krystal Agosto, PT, DPT, CLT [facility]
== END 2018-05-19 15:37 | disposition home or self-care (01) | DRG 470 ==
LOC: PDS 08:37 → MS 21:00
PROVIDERS: Admitting Provider Student in an Organized Health Care Education/Training Program; PCP Family Medicine; Visit Provider Student in an Organized Health Care Education/Training Program
PROC: 0SRC0J9 Replacement of Right Knee Joint with Synthetic Substitute, Cemented, Open Approach (ICD-10-PCS; CPT 27447; principal; 2018-05-17 10:15)
DX: M17.11 Unilateral primary osteoarthritis, right knee (principal); I42.9 Cardiomyopathy, unspecified; Z96.651 Presence of right artificial knee joint; E78.5 Hyperlipidemia, unspecified; I10 Essential (primary) hypertension; E66.9 Obesity, unspecified
CPT/HCPCS: 27447; 64447; 20985; 76942; 97110; 97162; 97530; NC; J0690; J1100; J1885; J2250; J2405

== ENCOUNTER 2018-06-01 15:25 | Outpatient (CLI) | payer MEDICARE, OTHER, SELFPAY ==
--- NOTE | 2018-06-01 14:59 | DI.RAD_ITS ---
SYMPTOM/DIAGNOSIS: F/U RIGHT KNEE: The patient is status post TKA. The prosthesis is in excellent position. Surrounding bone intact. LEG LENGTH EXAMINATION: The left leg measures 79 cm. The right leg measures 79 cm. Bilateral knee prostheses are noted in position.
== END 2018-06-01 15:45 ==
PROVIDERS: PCP Family Medicine; Referring Provider Family Medicine; Visit Provider Student in an Organized Health Care Education/Training Program
DX: Z96.653 Presence of artificial knee joint, bilateral (principal); Z47.1 Aftercare following joint replacement surgery; M17.11 Unilateral primary osteoarthritis, right knee
CPT/HCPCS: 73560; 77073

== ENCOUNTER → 2018-06-29 14:21 | Outpatient (BNVA) | payer MEDICARE, OTHER, SELFPAY | PROVIDERS: PCP Family Medicine; Referring Provider Family Medicine; Visit Provider Student in an Organized Health Care Education/Training Program | DX: M17.11 Unilateral primary osteoarthritis, right knee; Z47.1 Aftercare following joint replacement surgery; Z96.651 Presence of right artificial knee joint; I10 Essential (primary) hypertension ==

== ENCOUNTER 2018-08-23 00:29 | Outpatient (CLI) | payer MEDICARE, OTHER, SELFPAY ==
--- NOTE | 2018-08-23 10:50 | DI.MAMMO_ITS ---
SYMPTOM/DIAGNOSIS: SCREENING Z12.31 MAMMOGRAM: Mammograms were interpreted according to the usual protocol including computer analysis with CAD system, tomosynthesis and C view imaging. The breasts are primarily of fatty radiodensity. There are no suspicious calcifications. There has been no significant interval change when compared with prior images. SUMMARY: No evidence of malignancy. Category 1, yearly screening mammography is recommended.. Breast density category B. MQSA ASSESSMENT OF FINDINGS: Negative. Category 1. Patient will receive a letter notifying them of these results. BI-RADS category B. There are scattered areas of fibroglandular density.
== END 2018-08-23 00:49 ==
PROVIDERS: PCP Family Medicine; Visit Provider Family Medicine
DX: Z12.31 Encounter for screening mammogram for malignant neoplasm of breast (principal)
CPT/HCPCS: 77063; 77067

== ENCOUNTER 2019-05-04 21:43 | Outpatient (REF) | payer MEDICARE, OTHER, SELFPAY | END 2019-05-04 22:03 | LOC: LBN 21:43 | PROVIDERS: PCP Family Medicine; Visit Provider Nurse Practitioner Family | DX: N76.0 Acute vaginitis (principal) | CPT/HCPCS: 87480; 87510; 87660 ==

== ENCOUNTER 2019-10-23 03:01 | Outpatient (CLI) | payer MEDICARE, OTHER, SELFPAY ==
[2019-10-23 12:52] LABS: CREATININE 0.76 mg/dL (0.55-1.02); Calculated LDL 81 mg/dL (<100); Cholesterol 154 mg/dL (<200); Glucose 99 mg/dL (74-106); HDL Cholesterol 61 mg/dL (40-60); Potassium 4.3 mmol/L (3.5-5.1); TSH (W/Ref FT4) 2.83 uIU/mL (0.36-3.74); Triglyceride 63 mg/dL (<150)
== END 2019-10-23 03:21 ==
PROVIDERS: PCP Family Medicine; Visit Provider Family Medicine
DX: E03.9 Hypothyroidism, unspecified (principal); E78.5 Hyperlipidemia, unspecified; I10 Essential (primary) hypertension; R73.9 Hyperglycemia, unspecified
CPT/HCPCS: 36415; 80061; 82947; 82565; 84132; 84443

== ENCOUNTER 2020-08-21 13:33 | Outpatient (REF) | payer MEDICARE, SELFPAY ==
[2020-08-22 11:38] LABS: Campylobacter PCR Negative (Negative); Salmonella PCR Negative (Negative); Shiga Toxin PCR Negative (Negative); Shigella/Enteroinvasive Ecoli Negative (Negative)
== END 2020-08-21 13:34 | disposition home or self-care (01) ==
LOC: LBN 13:33
PROVIDERS: PCP Nurse Practitioner Family; Visit Provider Nurse Practitioner
DX: R19.7 Diarrhea, unspecified (principal)
CPT/HCPCS: 87505

== ENCOUNTER 2020-11-04 02:42 | Outpatient (CLI) | payer MEDICARE, OTHER, SELFPAY ==
[2020-11-04 12:51] LABS: Anion Gap 8.7 mmol/L (3-11); BUN 20 mg/dL (7-18); CO2 27.3 mmol/L (21.0-32.0); CREATININE 0.7 mg/dL (0.55-1.02); Calcium 9.6 mg/dL (8.5-10.1); Calculated LDL 80 mg/dL (<100); Chloride 97 mmol/L (98-107); Cholesterol 152 mg/dL (<200); Glucose 102 mg/dL (74-106); HDL Cholesterol 58 mg/dL (40-60); Hemoglobin A1C 5.9 % (<5.7); Potassium 4.6 mmol/L (3.5-5.1); Sodium 133 mmol/L (136-145); Triglyceride 70 mg/dL (<150)
== END 2020-11-04 02:43 | disposition home or self-care (01) ==
PROVIDERS: PCP Nurse Practitioner Family; Visit Provider Nurse Practitioner Family
DX: I10 Essential (primary) hypertension (principal); R73.03 Prediabetes; I25.10 Atherosclerotic heart disease of native coronary artery without angina pectoris
CPT/HCPCS: 36415; 80048; 80061; 83036

== ENCOUNTER 2020-12-30 01:59 | Outpatient (CLI) | payer MEDICARE, OTHER, SELFPAY ==
--- NOTE | 2020-12-30 | DI.MAMMO_ITS ---
Exam(s) MAMMO SCREENING EXAM: MAMMO SCREENING CLINICAL HISTORY: SCREENING, Z12.39. TECHNIQUE: Bilateral full field digital CC and MLO mammographic images were obtained with 3D tomosyn thesis and utilizing computer aided detection (CAD). COMPARISON: Prior mammograms dating back to 2011, the most recent being August 2018. FINDINGS: There are no CAD designations There are no new spiculated masses nor malignant appearing microcalcification groups. There is no significant architectural distortion nor skin thickening-retraction. IMPRESSION: No radiographic evidence of malignancy. BI-RADS Category 1 - Negative Breast Density - Category B - Scattered areas of fibroglandular density Breast density Category C or D implies that the patient has dense breast tissue. Dense breast tissue can make it harder to find cancer on a mammogram. Dense breast tissue is also associated with an incr eased risk of breast cancer. This information about the result of the mammogram report was provided to the patient to raise their awareness. Use this report when you speak with the patient about their risks for breast cancer, which includes their family history. At that time, you may recommend additional screening tests (Ultrasoun d or MRI) as these tests may add significant information. A negative radiographic report should not delay biopsy if a dominant or clinically suspicious mass is present. Up to ten percent of cancers are not identified on mammography. A negative report may reinforce clinical impression. Adenosis and dense breasts may obscure an underlying neoplasm. False positive reports average 6 to 10%. Patient will receive a letter notifying them of these results.
== END 2020-12-30 02:19 ==
PROVIDERS: PCP Nurse Practitioner Family; Visit Provider Nurse Practitioner Family
DX: Z12.31 Encounter for screening mammogram for malignant neoplasm of breast (principal)
CPT/HCPCS: 77063; 77067

== ENCOUNTER 2021-10-21 03:31 | Outpatient (CLI) | payer MEDICARE, OTHER, SELFPAY ==
[2021-10-21 12:52] LABS: Anion Gap 8.2 mmol/L (3-11); BUN 16 mg/dL (7-18); CO2 29.8 mmol/L (21.0-32.0); CREATININE 0.7 mg/dL (0.55-1.02); Calcium 9.1 mg/dL (8.5-10.1); Chloride 95 mmol/L (98-107); Glucose 101 mg/dL (74-106); Potassium 4.5 mmol/L (3.5-5.1); Sodium 133 mmol/L (136-145)
== END 2021-10-21 03:32 | disposition home or self-care (01) ==
LOC: LOS 03:31
PROVIDERS: PCP Nurse Practitioner Family; Visit Provider Nurse Practitioner Family
DX: I10 Essential (primary) hypertension (principal)
CPT/HCPCS: 36415; 80048

== ENCOUNTER 2021-11-19 04:19 | Outpatient (CLI) | payer MEDICARE, OTHER, SELFPAY ==
[2021-11-19 12:57] LABS: Anion Gap 5.9 mmol/L (3-11); BUN 15 mg/dL (7-18); CO2 30.1 mmol/L (21.0-32.0); CREATININE 0.8 mg/dL (0.55-1.02); Calcium 9.1 mg/dL (8.5-10.1); Chloride 102 mmol/L (98-107); Estimated GFR 78.24 (mL/min/1.73m2); Glucose 98 mg/dL (74-106); Potassium 4.4 mmol/L (3.5-5.1); Sodium 138 mmol/L (136-145)
[2021-11-19 13:07] LABS: Hemoglobin A1C 6.1 % (<5.7)
== END 2021-11-19 04:20 | disposition home or self-care (01) ==
LOC: LOS 04:20
PROVIDERS: PCP Nurse Practitioner Family; Visit Provider Nurse Practitioner Family
DX: I10 Essential (primary) hypertension (principal); R73.03 Prediabetes
CPT/HCPCS: 36415; 80048; 83036

== ENCOUNTER → 2022-01-02 00:22 | Outpatient (CLI) | payer MEDICARE, OTHER, SELFPAY ==
--- NOTE | 2022-01-02 08:15 | DI.DEXA_ITS ---
Exam(s) XR DEXA BONE DENSITY W/WO KARINA EXAM: XR DEXA BONE DENSITY W/WO KARINA CLINICAL HISTORY: screening for osteoporosis in postmenopausal woman, z78.0 TECHNIQUE: HoloOsmopure C densitometer analysis of left hip, lumbar spine and left forearm. COMPARISON: No exams were available for comparison FINDINGS: Lateral view of the thoracic and lumbar spine shows no evidence of compression fractures. Bone mineral density measurements of the lumbar spine correspond to a total T-score of 0.7, in the n ormal range. Bone mineral density measurements of the left hip correspond to a total T-score of -1.6. The femora l neck T-score is -2.3, in the osteopenic range.. The left forearm bone mineral density measurements correspond to a T-score of the distal 3rd of -2.0 , in the osteopenic range.. IMPRESSION: Normal bone mineral density of the lumbar spine. Osteopenia of the left hip and left forearm.
--- NOTE | 2022-01-02 08:15 | DI.MAMMO_ITS ---
Exam(s) MAMMO SCREENING EXAM: MAMMO SCREENING CLINICAL HISTORY: screening,z12.39. TECHNIQUE: Bilateral full field digital CC and MLO mammographic images were obtained with 3D tomosyn thesis and utilizing computer aided detection (CAD). COMPARISON: Prior mammograms were reviewed, the most recent being December 2020. FINDINGS: There are no new spiculated masses nor malignant appearing microcalcification groups. There is no significant architectural distortion nor skin thickening-retraction. IMPRESSION: No radiographic evidence of malignancy. BI-RADS Category 1 - Negative Breast Density - Category B - Scattered areas of fibroglandular density Breast density Category C or D implies that the patient has dense breast tissue. Dense breast tissue can make it harder to find cancer on a mammogram. Dense breast tissue is also associated with an incr eased risk of breast cancer. This information about the result of the mammogram report was provided to the patient to raise their awareness. Use this report when you speak with the patient about their risks for breast cancer, which includes their family history. At that time, you may recommend additional screening tests (Ultrasoun d or MRI) as these tests may add significant information. A negative radiographic report should not delay biopsy if a dominant or clinically suspicious mass is present. Up to ten percent of cancers are not identified on mammography. A negative report may reinforce clinical impression. Adenosis and dense breasts may obscure an underlying neoplasm. False positive reports average 6 to 10%. Patient will receive a letter notifying them of these results.
== END ==
PROVIDERS: PCP Nurse Practitioner Family; Visit Provider Nurse Practitioner Family
DX: Z13.820 Encounter for screening for osteoporosis (principal); Z12.31 Encounter for screening mammogram for malignant neoplasm of breast; M85.89 Other specified disorders of bone density and structure, multiple sites
CPT/HCPCS: 77063; 77067; 77080

== ENCOUNTER 2022-05-14 11:35 | Outpatient (CLI) | payer MEDICARE, OTHER, SELFPAY ==
--- NOTE | 2022-05-14 10:45 | DI.RAD_ITS ---
Exam(s) XR CHEST 2V PA LATERAL EXAM: XR CHEST 2V PA LATERAL CLINICAL HISTORY: SOB x 3mo,R06.02 TECHNIQUE: 2D digital imaging was performed of the chest. Two images were obtained. PA and lateral views were obtained. COMPARISON: CR CHEST 2 VIEWS PA,LAT from 03/06/2013 FINDINGS: MEDIASTINUM: Normal. HEART: Normal. PULMONARY VASCULATURE: Normal. LUNGS: Clear. PLEURAL SPACE: No pleural effusion or pneumothorax. BONE:Within normal limits for the patient's age. OTHER FINDINGS:Normal. IMPRESSION: No acute pulmonary findings. DATA REPOSITORY: RADIATION DOSE DELIVERED:
== END 2022-05-14 11:55 ==
LOC: DI 11:37
PROVIDERS: PCP Nurse Practitioner Family; Visit Provider Nurse Practitioner Family
DX: R06.02 Shortness of breath (principal)
CPT/HCPCS: 71046

== ENCOUNTER 2022-11-23 02:03 | Outpatient (CLI) | payer MEDICARE, OTHER, SELFPAY ==
[2022-11-23 12:27] LABS: Hemoglobin A1C 5.9 % (<5.7)
[2022-11-23 13:13] LABS: ALT 35 U/L (14-59); AST 19 U/L (15-37); Albumin 3.9 g/dL (3.4-5.0); Alkaline Phosphatase 83 U/L (46-116); Anion Gap 6.8 mmol/L (3-11); BUN 19 mg/dL (7-18); Bilirubin, Total 1.2 mg/dL (0.2-1.0); CO2 27.2 mmol/L (21.0-32.0); CREATININE 0.8 mg/dL (0.55-1.02); Calcium 9.2 mg/dL (8.5-10.1); Calculated LDL 78 mg/dL (<100); Chloride 103 mmol/L (98-107); Cholesterol 161 mg/dL (<200); Estimated GFR 77.75 (mL/min/1.73m2); Glucose 106 mg/dL (74-106); HDL Cholesterol 60 mg/dL (40-60); Potassium 4.1 mmol/L (3.5-5.1); Sodium 137 mmol/L (136-145); Total Protein 7.2 g/dL (6.4-8.2); Triglyceride 117 mg/dL (<150)
[2022-11-24 09:59] LABS: Hepatitis C Ab w Rflx HCV PCR Negative (Negative)
== END 2022-11-23 02:04 | disposition home or self-care (01) ==
LOC: LOS 02:03
PROVIDERS: PCP Nurse Practitioner Family; Visit Provider Nurse Practitioner Family
DX: Z00.00 Encounter for general adult medical examination without abnormal findings (principal)
CPT/HCPCS: 36415; 80053; 80061; 86803; 83036

== ENCOUNTER 2022-12-25 11:53 | Day surgery (SDC) | payer MEDICARE, SELFPAY ==
[2022-12-25 12:20] VITALS: BP 120/67; PULSE 62; RESP 16; TEMP 36.6; O2SAT 96
[2022-12-25] MEDS: Tropicam./Phenyleph. (1/2.5%) 5 ML BTL OS ×3 (12:47→12:57)
--- NOTE | 2022-12-25 12:50 | W.ANESPRE ---
General Info Date of Service Date Performed: 12/25/22 Height: 4 ft 10 in Weight: 78.8 kg Body Mass Index (BMI): 36.3 Surgical Procedure: Operation Date: 12/25/22 15:55 Proposed Procedure Side Surgeon p Cataract Extraction with IOL Implant w/Glaucoma Stent Left Quinn Wagner MD Meds Allergies and Home Medications Allergies Allergy/AdvReac Type Severity Reaction Status Date / Time Penicillins Allergy Intermediate Skin Rash Unverified 12/25/22 12:20 Home Medication Medication Instructions Recorded multivitamin (Daily Multi-Vitamin 1 ea PO DAILY 08/04/17 tablet) ascorbic acid 1,000 1 ea PO DAILY PRN PRN 05/12/18 qw-gmzezmnjxgip-juwhwqzt powder effervescent pack (Emergen-C) calcium carbonate 300 mg (750 mg) 600 mg PO PRN PRN 05/12/18 chewable tablet (Tums) aspirin 81 mg tablet,delayed 81 mg PO DAILY 06/29/18 release (Adult Aspirin Regimen) clotrimazole 1 % topical cream 1 applic topical TID #45 grams 06/14/20 latanoprost 0.005 % eye drops 1 drp ophthalmic (eye) DAILY 06/14/20 timolol 0.5 % eye drops 1 drp ophthalmic (eye) BID 06/14/20 omeprazole 20 mg capsule,delayed 20 mg PO DAILY PRN 04/25/21 release calcium carbonate 600 mg calcium 1,200 mg PO DAILY 03/02/22 (1,500 mg) tablet (Calcium) atorvastatin 10 mg tablet 10 mg PO QAM #90 tabs 05/14/22 cholecalciferol (vitamin D3) 10 800 unit PO DAILY 05/14/22 mcg (400 unit) capsule losartan 100 mg tablet 100 mg PO DAILY #90 tabs 05/14/22 amlodipine 10 mg tablet 10 mg PO DAILY #90 tabs 11/30/22 Current Visit Medications: Current Medications Generic Name Dose Route Start Last Admin Trade Name Freq PRN Reason Stop Dose Admin Acetaminophen 1,000 mg 12/25/22 06:00 Acetaminophen 500 Mg Tab PO 01/24/23 05:59 Q4H PRN PRN Balanced Salt Solution 500 ml 12/25/22 06:00 Balanced Salt Soln.-Plus 500 Ml Bag OP 01/24/23 05:59 DIRECTED [facility] Miscellaneous Medication 0 ml 12/25/22 06:00 Prednisolone 1%, Moxifloxacin 0.5%, Nepafenac 0.1% 5ml Btl OS 01/24/23 05:59 DIRECTED [facility] Miscellaneous Medication 0 ml 12/25/22 06:00 Tropicam./Phenyleph. (1/2.5%) 5 Ml Btl OS 01/24/23 05:59 DIRECTED [facility] Tetracaine HCl 0 ml 12/25/22 06:00 Tetracaine 0.5% 4 Ml Btl OS 01/24/23 05:59 DIRECTED [facility] PFSH Active Problems Active Problems: Problem Status Onset Code HTN (hypertension) I10 Primary open angle glaucoma (POAG) of left eye, mild stage H40.1121 Cortical age-related cataract, left eye H25.012 Nuclear age-related cataract, left eye H25.12 Coronary artery disease I25.10 YADI (obstructive sleep apnea) G47.33 Bilateral carotid artery stenosis I65.23 Essential hypertension I10 Hyperlipemia E78.5 Prediabetes R73.03 GERD (gastroesophageal reflux disease) K21.9 Osteopenia M85.80 Obesity E66.9 Glaucoma H40.9 Seasonal allergic rhinitis J30.2 Diverticulosis of colon K57.30 Medical History Medical History Takotsubo cardiomyopathy Surgical History Surgical History History of bilateral tubal ligation (1974) History of left-sided carotid endarterectomy (02/15/13) S/P abdominal hysterectomy (~2002) Status post left knee replacement (09/10/15) Status post right knee replacement (05/17/18) Tobacco Smoking/Tobacco Use Status: Never Passive smoking exposure: Yes Alcohol Alcohol Intake: current Alcohol intake frequency: a few times a week Alcohol type: beer and wine Substance Use Substance use: Never Vital Signs and Lab Results Vital Signs Most Recent Vital Signs in EMR: Most Recent Vital Signs Temp Pulse Resp BP Pulse Ox 36.6 C 62 16 120/67 96 12/25/22 12:20 12/25/22 12:20 12/25/22 12:20 12/25/22 12:20 12/25/22 12:20 Lab Results Blood Type / Crossmatch: No Data to Display Complete Blood Count: No Data to Display Complete Metabolic Panel: No Data to Display Liver Function Panel: No Data to Display Coagulation Panel: No Data to Display Cardiac Panel: No Data to Display Arterial Blood Gas: No Data to Display Venous Blood Gas: No Data to Display Pancreas Panel: No Data to Display Thyroid Panel: No Data to Display Infectious Disease: No Data to Display Blood Cultures: No Data to Display Toxicology Panel: No Data to Display Imaging and Studies Imaging and Studies Study information below may be from another EMR and interpreted by another provider. Please see original notes in EMR for more complete details. Stress Test Summary: Patient Name: BRITTANY HERRERA Unit #: [id number] Loc: Ordering Provider: Dano Helm Status: REG CLI Primary Care Provider: Dano Helm Date of Exam: 08/11/17 Sex: F : 1950 Age: 67 Exam(s) [id number] NM:MPI Resting & Stress GRP *[facility]* *[facility]* [address] [place] [address] Myocardial Perfusion Imaging - SPECT Girish protocol Date of study: 08/11/2017 *PATIENT PRESENTATION* Height: 149.9cm (59in) Blood Pressure: Weight: 75kg (165lb) BSA: 1.8m^2 Referring physician: Lauren Fowler Ordering physician: Dano Helm Impressions: Negative stress test after maximal exercise. Summary: 1. Myocardial perfusion imaging: No myocardial perfusion defects noted. 2. The calculated left ventricular ejection fraction after stress: 67%. LV global systolic function is normal. No left ventricular regional motion abnormality. 3. Stress ECG conclusions: The stress ECG is negative. Buckley treadmill score: 5. This score predicts a low risk of cardiac events. 4. Stress: The target heart rate was achieved. The heart rate response to stress is normal. There is resting hypertension with a blunted response to stress. The patient experienced no chest pain during stress. Exercise capacity is average for age. Indication: R06.02. History: REASON FOR VISIT: SHORTNESS OF BREATH WITH ACTIVITY. OCCASIONAL PALPITATIONS. PT STATES SHE WAS DIAGNOSED TAKOSUBO CARDIOMYOPATHY ABOUT 8 YEARS AGO. Risk factors: Family history of coronary artery disease. Hypertension. Obesity. Dyslipidemia. Cholesterol: 165mg/dl. HDL: 58mg/dl. LDL: 94mg/dl. Triglycerides: 98mg/dl. ALLERGIES: PENICILLIN. MEDICATIONS: ASPIRIN 81 MG DAILY. ATORVASTATIN CALCIUM 10 MG DAILY. DICLOFENAC SODIUM 75 MG DAILY. HYDROCHLOROTHIAZIDE 25 MG DAILY. LISINOPRIL 40 MG DAILY. MISOPROSTOL 200 MCG DAILY. MVI 1 TAB DAILY. NAPROXEN SODIUM 220 MG BID PRN. RANITIDINE HCL 75 MG DAILY PRN. Imaging Technique: Protocol: Girish protocol. Acquisition: Gated SPECT; 1 day - rest/stress. The patient was imaged in the supine position. Attenuation correction used. Isotope administration: - Rest. Tc[99m]-sestamibi. Dose: 10.5mCi. Injection time: 10:00 AM. Injection to stress time: 00:45. - Stress. Tc[99m]-sestamibi. Dose: 32mCi. Injection time: 12:04 PM. 1-2 min before end of exercise Baseline ECG: SINUS RHYTHM. HR 65 BPM. Normal ECG. Stress protocol: + +---+ + !Stage !HR !BP (mmHg) ! + +---+ + !Baseline supine !65 !168/90 (116)! + +---+ + !Baseline standing !67 !165/86 (112)! + +---+ + !Stage I; 1.7mph, 10degrees; 3 min !118!176/88 (117)! + +---+ + !Stage II; 2.5mph, 12degrees; 3 min!129! ! + +---+ + !Peak stress !150! ! + +---+ + !Recovery; 1 min !98 !176/80 (112)! + +---+ + !Recovery; 3 min !75 !142/78 (99) ! + +---+ + !Recovery; 6 min !75 !140/74 (96) ! + +---+ + * Stress results: Maximal heart rate during stress was 150bpm (99% of maximal predicted heart rate). The maximal predicted heart rate was 152bpm. The target heart rate was achieved. The heart rate response to stress is normal. There is resting hypertension with a blunted response to stress. The rate-pressure product for the peak heart rate and blood pressure was 80976lc Hg/min. The patient experienced no chest pain during stress. Exercise capacity is average for age. Stress ECG: TREADMILL PORTION OF STRESS TEST ENDED IN 5 MINUTES & 12 SECONDS DUE TO FATIGUE. NORMAL HEART RATE AND NORMAL BLOOD PRESSURE RESPONSE TO EXERCISE. MAX HR = 150 % OF TARGET = 98 PVC X1. APPROXIMATE METS ACHIEVED = 7.05 NO [address]GINA. NO SIGNIFICANT ST SEGMENT CHANGES NOTED, ALTHOUGH DIFFICULT TO ASCERTAIN DUE TO FREQUENT ARTIFACT. AVERAGE FUNCTIONAL CAPACITY FOR EXERCISE. The stress ECG is negative. Buckley treadmill score: 5. This score predicts a low risk of cardiac events. Myocardial perfusion: Imaging information: gated. The image quality was good. Left ventricular size is normal. No myocardial perfusion defects noted. Ventricular Function (Wall Motion): The calculated left ventricular ejection fraction after stress: 67%. LV global systolic function is normal. No left ventricular regional motion abnormality. Study data: Lauren Fowler MD supervised and was readily available during the procedure. This study was interpreted by [facility]. Study status: Routine. Consent: The risks, benefits, and alternatives to the procedure were explained to the patient and informed consent was obtained. Procedure: Initial setup. A baseline ECG was recorded. Surface ECG leads and manual cuff blood pressure measurements were monitored. Heart sounds: Normal. Lung sounds: Normal. Treadmill exercise testing was performed using the Girish protocol. Study completion: All catheters inserted during the procedure were removed. The patient tolerated the procedure well and was discharged from the lab. Discharge: The patient left the laboratory in stable condition. Birthdate: Patient birthdate: 1950. Sex: Gender: female. Study date: Study date: 08/11/2017. Study time: 09:30 AM. Signature Documentation: - The imaging portion of this study was interpreted by Nuclear Accounting Analyst Lauren Fowler MD. - The imaging portion of this study was interpreted by Nuclear Radiologist Nakul Zendejas MD. - The Stress ECG portion of this study was interpreted by Lauren Fowler MD. Electronically signed by Lauren Fowler 08/11/2017 15:24 Ordering provider: Dano Helm CC: JULIA MCDONALD,PhD,LAUREN Dictated by: Nakul Zendejas M.D. 1956 <Electronically signed by Nakul Zendejas M.D.>08/11/17 2183 Disclaimer: The [facility] radiologist is signing only the Nuclear Medicine MPI Imaging exam portion of the report. Transcribed by: Jeferson Ruiz08/11/17 3089 This is privileged, confidential information intended only for the provider named. Any use or distribution by any person other than this provider is strictly prohibited. If you receive this report in error, please notify us immediately at [phone] and return the original report to us at the address above. Thank-you. Anesthesia Assessment and Plan Anesthesia History Personal History: No History of Anesthesia Complications Family History: No Family History of Anesthesia Complications Exercise Tolerance Exercise Tolerance: Metabolic Equivalents>4 Pertinent Negatives Pertinent Negatives: No Symptoms of GERD, No Major Pulmonary Symptoms or Complaints and No History of CVA/TIA Cardiac & Pulmonary Exam Cardiac Exam: Normal S1/S2 Heart Sounds Pulmonary Exam: Clear Bilateral Breath Sounds Implantable Cardiac Device Does patient have a Pacemaker or an ICD?: No Airway Exam Known Difficult Airway: No Mallampati Class: 3 Mouth Opening: Normal (> 3cm) Thyromental Distance: Greater than 3 cm Neck Range of Motion: Full ROM Neck Circumference: Normal Teeth Condition: Normal Dentition and Generalized Poor Dentition ASA Classification ASA Score: ASA 2 Emergency Case?: No NPO Status NPO Status: NPO Clears >2 hours, Solids >8 hours Anesthesia Plan Resuscitation Status: Full Code Anesthesia Technique: MAC Anesthesia Airway Planned: Natural Airway Monitors Used: Standard Monitors Preoperative Comments:: 72 yo female here for Cataract. Planning on no MKO PMH: Takotsubo Cardiomyopathy, bilateral carotid artery stenosis, YADI (CPAP), GERD (Tums), CAD ([facility] 2010 with RCA dx)
[2022-12-25 12:53] VITALS: BMI 36.3
[2022-12-25] MEDS: Balanced Salt Soln.-PLUS 500 ML BAG OP (13:52)
[2022-12-25] MEDS: Duovisc Viscoelastic System EACH 1 EACH (13:53)
[2022-12-25] MEDS: Tetracaine 0.5% 4 ML BTL OS (13:53)
[2022-12-25] MEDS: Lidocaine 1% Pres-Free 5 ML VIAL (13:54)
[2022-12-25] MEDS: Phenylephrine/Lidocaine (15/10) MG/ML 1 ML VIAL (13:55)
[2022-12-25] MEDS: Trypan Blue 0.06% 0.5 ML SYR (13:56)
[2022-12-25] MEDS: Povidone-Iodine Ophth 30 ML BTL (13:56)
[2022-12-25 14:26] VITALS: BP 132/60; PULSE 72; RESP 16; TEMP 36.4; O2SAT 97
--- NOTE | 2022-12-25 14:28 | W.PM.DSUDISC ---
Date of service: 12/25/22 Time of Service: 14:29 Discharge Plan Disposition Patient Disposition: Home Discharge Details Attending Provider: Quinn Wagner Primary Care Provider: Clara Weller Home Meds and New Rx's Prescriptions: No Action aspirin [Adult Aspirin Regimen] 81 mg tablet,delayed release (DR/EC) 81 mg PO DAILY latanoprost 0.005 % drops 1 drp ophthalmic (eye) DAILY timolol 0.5 % drops 1 drp ophthalmic (eye) BID clotrimazole 1 % cream 1 applic topical TID Qty: 45 0RF omeprazole 20 mg capsule,delayed release(DR/EC) 20 mg PO DAILY PRN Hold Instructions: Pt Stopped/Never Started calcium carbonate [Calcium 600] 600 mg calcium (1,500 mg) tablet 1,200 mg PO DAILY Hold Instructions: Duplicate amlodipine 10 mg tablet 10 mg PO DAILY Qty: 90 3RF cholecalciferol (vitamin D3) 10 mcg (400 unit) capsule 800 unit PO DAILY atorvastatin 10 mg tablet 10 mg PO QAM Qty: 90 3RF losartan 100 mg tablet 100 mg PO DAILY Qty: 90 3RF multivitamin [Daily Multi-Vitamin] 1 EACH tablet 1 ea PO DAILY calcium carbonate [Tums] 300 mg (750 mg) Tablet,Chewable 600 mg PO PRN PRN Emergen-C 1,000 mg Powder Effervescent In Packet 1 ea PO DAILY PRN PRN Discharge Instructions Stand Alone Forms: Post-op Topical Cataract, Press Ganey (DSU) Discharge Orders Discharge Orders: Discharge Order (Routine); Ordered 12/25/22 Ordered By: Quinn Wagner DS: Diagnosis Discharge Diagnosis (1) Nuclear age-related cataract, left eye: Status: Resolved (2) Cortical age-related cataract, left eye: Status: Resolved (3) Primary open angle glaucoma (POAG) of left eye, mild stage: Status: Chronic
--- NOTE | 2022-12-25 14:33 | W.PM.OP ---
Date of service: 12/25/22 Time of Service: 14:33 Operative Note Operative Note DATE OF PROCEDURE: 12/25/22 PRE-OP DIAGNOSIS: Nuclear/cortical cataract, left eye Primary open-angle glaucoma, left eye, mild stage PROCEDURE: 1. Cataract extraction using phacoemulsification with intraocular lens implant, left eye 2. Insertion of multiple anterior segment aqueous drainage devices (Glaukos iStent) into trabecular meshwork, left eye SURGEON: Quinn Wagner ANESTHESIA TYPE: Local By Surgeon and MAC Refer to Anesthesia Record ESTIMATED BLOOD LOSS: 0 PATHOLOGY: none sent COMPLICATIONS: None Patient was transported to: same day Patient's condition: stable Implants: 1. Maxi and Maxi Vision Tecnis Eyhance DIB00 intraocular lens 2. Glaukos iStent trabecular micro-bypass stents Indications: 1. Progressive decreased vision due to cataract, left eye 2. Primary open angle glaucoma, left eye Procedure Description: CATARACT SURGERY OPERATIVE REPORT PREOPERATIVE DIAGNOSIS: Nuclear/cortical cataract, left eye POSTOPERATIVE DIAGNOSIS: Same OPERATION: 1. Cataract extraction using phacoemulsification with posterior chamber intraocular lens implant, left eye. 2. Insertion of multiple anterior segment aqueous drainage devices (Glaukos iStent) into trabecular meshwork, left eye IOL: IOL [employer]roll [employer] Specialist/Model: Lee Clareon [id number] IOL Power: + 14.5 diopters IOL Serial Number: [id number] Optic Diameter: 6.0mm Haptic/Overall Diameter: 13.0mm PHACO INFO: Lee Centurion Vision System with OZil and Active Fluidics Cumulative Dispersed Energy (CDE): 7.01 seconds TRABECULAR MICRO-BYPASS STENT INFO: Glaukos iStent x 2 Reference Number: [id number] Serial Number: [id number] SURGEON: Quinn Wagner MD, MADIHA ANESTHESIA: Monitored Anesthesia Care (MAC), with local sub-tenon's anesthetic infiltration COMPLICATIONS: None SPECIMENS: None INDICATIONS FOR PROCEDURE: The patient is a 72-year-old lady with history of myopia who has developed a symptomatic nuclear/cortical cataract. She also has a history of primary open-angle glaucoma, mild stage, controlled on 2 medications in the left eye. The option of cataract surgery was offered to the patient. In addition, the option of minimally invasive glaucoma procedure at the time of cataract surgery in the form of microtrabecular bypass stent was also offered to the patient and she wished to proceed with this as well. See office notes for detailed information. PROCEDURE: The correct surgical eye was identified and marked as the left eye and the pupil was dilated in the preoperative area using mydriatics and cycloplegics. The dilated pupil size was 6.0 mm. The patient elected to proceed without oral sedation. The patient was brought to the operating room where cardiopulmonary monitoring was instituted and surgical time-out was performed, confirming the correct operative eye and IOL power. Topical anesthesia was administered and ophthalmic povidone-iodine 5% was instilled into the conjunctival fornices. The jack-ocular area was prepped with Betadine 10% solution and draped in the usual sterile fashion for intraocular surgery, including an aperture drape. A Tegaderm transparent film dressing was cut in half and used to cover the lashes and lid margins. Care was taken to sequester the lashes and lid margins under the Tegaderm dressing. A lid speculum was placed between the lids of the operative eye and the Lee LuxOR Revalia operating microscope was maneuvered into position. Erika scissors were then used to make a conjunctival buttonhole approximately 6mm posterior to the limbus in the inferonasal quadrant. Blunt dissection was carried out to expose bare sclera, and a blunt-tipped sub-tenon?s anesthesia cannula was introduced and passed posteriorly along the globe where non-preserved plain lidocaine was injected into posterior sub-Tenon?s space. A sideport knife was used to make a paracentesis port superior/superiortemporally. VisionBlue was injected into the anterior chamber and allowed to sit for 20 seconds. Intraocular phenylephrine/lidocaine was injected into the anterior chamber. The anterior chamber was then filled with viscoelastic. A keratome knife was used to construct a clear corneal tunnel extending 2.0mm into clear cornea. . A flap was raised on the anterior capsule and capsulorhexis forceps were used to complete a continuous curvilinear capsulorhexis of 5.0 mm. Balanced salt solution was then used to perform cortical cleaving hydrodissection and nuclear hydrodelineation until the lens could be freely rotated within the capsular bag. The lens nucleus was then disassembled and removed within the capsular bag and iris plane using phacoemulsification. Residual cortical material was removed using the 45-degree angled silicone I/A tip with 0.3mm port. The posterior capsule was carefully polished to remove as much residual lens epithelial cells as safely possible. The capsular bag was then inflated and the anterior chamber deepened with viscoelastic. The lens implant described above was inserted into the capsular bag using the Lee Autonome pre-loaded injector. A Kuglen hook was used to dial the IOL into position. The anterior chamber was then slightly over-filled with viscoelastic. The microsope and the patient's head were tilted into the ideal position for viewing of the anterior chamber angle. Viscoelastic was placed on the cornea followed by a surgical gonionlens, and the anterior chamber angle landmarks were identified. The cloud.IQ iStent injection handpiece was introduced into the anterior chamber and the insertion sleeve was retracted. The trocar was advanced through the central portion of the trabecular meshwork and into the back wall of Schlemm's canal in the nasal quadrant, with care taken to ensure the micro-insertion tube was perpendicular to the trabecular meshwork. The trabecular meshwork was lightly dimpled and the stent was injected without difficulty at the 9 o'clock position. A significant amount of hemorrhage was present through the stent aperture, obscuring the view of the ankle. Additional viscoelastic was injected into the anterior chamber angle to clear the view. The stent was not fully seated into the trabecular meshwork, so the trocar was again engaged to further implant the stent.. The same procedure was then performed in the inferiornasal quradrant. A third stent was then injected into the superiornasal quadrant. The stents were then examined and noted to be in good position within the trabecular meshwork. The microscope and the patients head were returned to the normal coaxial position. Viscoelatic was then removed from the anterior chamber using the I/A handpiece. During removal of viscoelastic. The nasal stent at the 9 o'clock position worked itself free from the angle and was resting on the intraocular lens implant. It was removed with the irrigation/aspiration handpiece. Blanching of the deep conjunctival vessels was noted nasally during removal of viscoelastic. The lens implant was noted to center nicely within the capsular bag. The incisions were stromally hydrated, and the anterior chamber was reformed using BSS. Then 0.5cc of moxifloxacin 1.0mg/ml were injected into the capsular bag and anterior chamber. The incisions were checked with a Weck spear and found to be secure. Several drops of ophthalmic povidone-iodine 5% were then applied to the eye followed by two drops of Imprimis combination prednisolone/moxifloxacin/nepafenac solution. The drapes were removed and a clear plastic protective eye shield was placed over the eye. The patient was then returned to Same Day Surgery in stable condition.
--- NOTE | 2022-12-25 14:41 | W.ANESPOSTOP ---
Postoperative Evaluation Date, Time and Location Date Performed: 12/25/22 Time Performed: 14:30 Patient Location: Day Surgery Unit Vital Signs Most Recent Imported Vital Signs: Most Recent Vital Signs Temp Pulse Resp BP Pulse Ox 36.4 C L 72 16 132/60 97 12/25/22 14:26 12/25/22 14:26 12/25/22 14:26 12/25/22 14:26 12/25/22 14:26 Pain Score Most Recent Pain Score: Most Recent Pain Score Pain Level 0 12/25/22 14:26 Assessment Mental Status: Awake (Alert & Oriented to Patient Baseline) Airway and Respiratory Function: Patent airway with normal (patient baseline) respiratory exam Cardiovascular Function: Hemodynamically Stable Hydration Status: Adequately Hydrated Nausea & Vomiting: No Nausea or Vomiting Pain: Pt. Denies Any Pain Peripheral Nerve Block: Other (Local by Dr. Wagner)
== END 2022-12-25 14:52 | disposition home or self-care (01) ==
LOC: SUR 11:54
PROVIDERS: PCP Nurse Practitioner Family; Visit Provider Ophthalmology
PROC: (CPT 66991; principal; 2022-12-25 15:45)
DX: H25.12 Age-related nuclear cataract, left eye (principal); H25.012 Cortical age-related cataract, left eye; H40.1121 Primary open-angle glaucoma, left eye, mild stage; K21.9 Gastro-esophageal reflux disease without esophagitis; I10 Essential (primary) hypertension; G47.33 Obstructive sleep apnea (adult) (pediatric)
CPT/HCPCS: 66991; 00123; V2632

== ENCOUNTER 2023-01-01 10:24 | Day surgery (SDC) | payer MEDICARE, SELFPAY ==
--- NOTE | 2023-01-01 06:53 | W.PREOPHP ---
Assessment and Plan Assessment and plan (1) Cortical age-related cataract, right eye: Status: Acute Assessment and plan: Assessment: Visually significant cataract of the right eye. Plan: Cataract extraction with lens plantation of the right eye. (2) Nuclear age-related cataract, right eye: Status: Acute Assessment and plan: Assessment: Visually significant cataract of the right eye. Plan: Cataract extraction with lens plantation of the right eye (3) Primary open angle glaucoma (POAG) of right eye, mild stage: Status: Acute Assessment and plan: Assessment: Primary open-angle glaucoma, mild stage, right eye. Plan: Microtrabecular bypass stent procedure at the time of cataract surgery in the right eye. History of Present Illness History of Present Illness Chief Complaint: Decreased vision, right eye, primary open-angle glaucoma, right eye Narrative: The patient is a 71-year-old lady with history of mild stage primary open-angle glaucoma, managed on 1 medication in the right eye, 2 medications in the left eye. She presented with complaints of progressive decreased vision in both eyes at both distance and near. She notes significant difficulty with glare driving at night and can no longer read fine print on her medication bottles. She was noted to have moderate bilateral nuclear and cortical cataract in both eyes. She underwent cataract surgery in the left eye on 12/25/2022 with implantation of glaucoma stent. Postoperatively, she has regained uncorrected visual acuity of 20/40 in the left eye, pinhole into 2020. She now presents for cataract surgery in the right eye with glaucoma stent as well. Review of Systems All systems reviewed & are unremarkable except as noted in HPI and below PFSH All Active Problems Cortical age-related cataract, right eye (Acute) Nuclear age-related cataract, right eye (Acute) Primary open angle glaucoma (POAG) of right eye, mild stage (Acute) Primary open angle glaucoma (POAG) of left eye, mild stage (Chronic) Coronary artery disease (Chronic) [facility] 2010 with RCA disease YADI (obstructive sleep apnea) (Chronic) PSG 11/08/18. CPAP Bilateral carotid artery stenosis (Chronic) Essential hypertension (Chronic) HTN (hypertension) (Chronic) Hyperlipemia (Chronic) Prediabetes (Chronic) GERD (gastroesophageal reflux disease) (Chronic) Osteopenia (Chronic) Dexa 2021 Obesity (Chronic) Glaucoma (Chronic) Seasonal allergic rhinitis (Chronic) Diverticulosis of colon (Chronic) Medical History Takotsubo cardiomyopathy Surgical History History of left-sided carotid endarterectomy (02/15/13) Status post left knee replacement (09/10/15) Status post right knee replacement (05/17/18) History of bilateral tubal ligation (1974) S/P abdominal hysterectomy (~2002) Family History Mother , 79 CAD (coronary artery disease) Alzheimer disease Hyperlipidemia Asthma Hypertension Father , 54 Alcohol abuse Heart disease Sister Hyperlipidemia Asthma Hypertension Sister Asthma Hypertension Brother Asthma RA (rheumatoid arthritis) Son No problems noted. Paternal Grandfather , 62 No problems noted. Paternal Grandmother , 54 RA (rheumatoid arthritis) Maternal Grandfather Diabetes Maternal Grandmother No problems noted. Social History Smoking/Tobacco Use Status: Never Smoking risk assessment performed?: Yes Alcohol Intake: current Alcohol Intake frequency: a few times a week Alcohol type: beer and wine Drug use: Never Caregiver/Support person: No Household members: spouse Housing: house Communication Needs: Corrective Lenses Do you need help understanding health information?: Always Pets and animals: No Sexually active: No Do you think of yourself as: straight/heterosexual Current gender identity: female What is your relationship status?: How often do you talk on the phone with friends or family?: three or more times per week How often do you get together with friends or relatives?: three or more times per week How often do you attend roman catholic or yarsanism services?: 4 or more times per year Do you belong to any clubs or organized social groups?: yes Panel score (0-1 are the most socially isolated patients): 4 What type of physical activity do you participate in: walking and other Details: gardening/ stretching Duration: 30-45 minutes/day Frequency: 1-2 times per week Palak/Yazidi: Anabaptism Special palak needs: No Seatbelt use: always Helmet use: No 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 Do you feel safe at home: Yes Do you feel safe in your relationship?: Yes Meds Allergies and Home Medications Allergies Allergy/AdvReac Type Severity Reaction Status Date / Time Penicillins Allergy Intermediate Skin Rash Unverified 01/01/23 10:44 Home Medications Medication Instructions Recorded Confirmed Type multivitamin (Daily Multi-Vitamin 1 ea PO DAILY 08/04/17 01/01/23 History tablet) ascorbic acid 1,000 1 ea PO DAILY PRN PRN 05/12/18 01/01/23 History si-gfpzuszmyfls-sehczekg powder effervescent pack (Emergen-C) calcium carbonate 300 mg (750 mg) 600 mg PO PRN PRN 05/12/18 01/01/23 History chewable tablet (Tums) aspirin 81 mg tablet,delayed 81 mg PO DAILY 06/29/18 01/01/23 History release (Adult Aspirin Regimen) clotrimazole 1 % topical cream 1 applic topical TID #45 grams 06/14/20 01/01/23 Rx latanoprost 0.005 % eye drops 1 drp ophthalmic (eye) DAILY 06/14/20 01/01/23 History timolol 0.5 % eye drops 1 drp ophthalmic (eye) BID 06/14/20 01/01/23 History omeprazole 20 mg capsule,delayed 20 mg PO DAILY PRN 04/25/21 01/01/23 History release calcium carbonate 600 mg calcium 1,200 mg PO DAILY 03/02/22 12/25/22 History (1,500 mg) tablet (Calcium) atorvastatin 10 mg tablet 10 mg PO QAM #90 tabs 05/14/22 01/01/23 Rx cholecalciferol (vitamin D3) 10 800 unit PO DAILY 05/14/22 01/01/23 History mcg (400 unit) capsule losartan 100 mg tablet 100 mg PO DAILY #90 tabs 05/14/22 01/01/23 Rx amlodipine 10 mg tablet 10 mg PO DAILY #90 tabs 11/30/22 01/01/23 Rx Exam Eyes Other: Most recent ocular examination reveals corrected vision of 20/30 in the right eye, 20/40 in the left eye. The left eye pinholes to 20/20. Intraocular pressure is 16 OU. Extract motility is normal. Pupillary exam is normal. Slit-lamp examination reveals 2+ nuclear/cortical cataract in the right eye. In the left eye there is a well-positioned PCIOL. There is some mild corneal edema centrally with some folds extending superiorly. Funduscopic examination reveals disc cupping of 0.6 OU with normal vessels, macula, peripheral retina and vitreous. Resp Auscultation: clear to auscultation bilaterally Cardio Rate: regular rate Rhythm: regular rhythm
[2023-01-01 10:35] VITALS: BP 153/77; PULSE 82; RESP 20; TEMP 36.6; O2SAT 97
--- NOTE | 2023-01-01 10:37 | W.ANESPRE ---
General Info Date of Service Date Performed: 01/01/23 Height: 4 ft 10 in Weight: 78.8 kg Body Mass Index (BMI): 36.3 Surgical Procedure: Operation Date: 01/01/23 13:40 Proposed Procedure Side Surgeon p Cataract Extraction with IOL Implant w/Glaucoma Stent Right Quinn Wagner MD Meds Allergies and Home Medications Allergies Allergy/AdvReac Type Severity Reaction Status Date / Time Penicillins Allergy Intermediate Skin Rash Unverified 01/01/23 10:44 Home Medication Medication Instructions Recorded multivitamin (Daily Multi-Vitamin 1 ea PO DAILY 08/04/17 tablet) ascorbic acid 1,000 1 ea PO DAILY PRN PRN 05/12/18 dc-[id number] powder effervescent pack (Emergen-C) calcium carbonate 300 mg (750 mg) 600 mg PO PRN PRN 05/12/18 chewable tablet (Tums) aspirin 81 mg tablet,delayed 81 mg PO DAILY 06/29/18 release (Adult Aspirin Regimen) clotrimazole 1 % topical cream 1 applic topical TID #45 grams 06/14/20 latanoprost 0.005 % eye drops 1 drp ophthalmic (eye) DAILY 06/14/20 timolol 0.5 % eye drops 1 drp ophthalmic (eye) BID 06/14/20 omeprazole 20 mg capsule,delayed 20 mg PO DAILY PRN 04/25/21 release calcium carbonate 600 mg calcium 1,200 mg PO DAILY 03/02/22 (1,500 mg) tablet (Calcium) atorvastatin 10 mg tablet 10 mg PO QAM #90 tabs 05/14/22 cholecalciferol (vitamin D3) 10 800 unit PO DAILY 05/14/22 mcg (400 unit) capsule losartan 100 mg tablet 100 mg PO DAILY #90 tabs 05/14/22 amlodipine 10 mg tablet 10 mg PO DAILY #90 tabs 11/30/22 Current Visit Medications: Current Medications Generic Name Dose Route Start Last Admin Trade Name Freq PRN Reason Stop Dose Admin Acetaminophen 1,000 mg 01/01/23 06:00 Acetaminophen 500 Mg Tab PO 01/31/23 05:59 Q4H PRN PRN Balanced Salt Solution 500 ml 01/01/23 06:00 Balanced Salt Soln.-Plus 500 Ml Bag OP 01/31/23 05:59 DIRECTED [facility] Miscellaneous Medication 0 ml 01/01/23 06:00 Prednisolone 1%, Moxifloxacin 0.5%, Nepafenac 0.1% 5ml Btl OD 01/31/23 05:59 DIRECTED [facility] Miscellaneous Medication 0 ml 01/01/23 06:00 Tropicam./Phenyleph. (1/2.5%) 5 Ml Btl OD 01/31/23 05:59 DIRECTED [facility] Tetracaine HCl 0 ml 01/01/23 06:00 Tetracaine 0.5% 4 Ml Btl OD 01/31/23 05:59 DIRECTED [facility] PFSH Active Problems Active Problems: Problem Status Onset Code Cortical age-related cataract, right eye H25.011 Nuclear age-related cataract, right eye H25.11 Primary open angle glaucoma (POAG) of right eye, mild stage H40.1111 Cortical age-related cataract, left eye H25.012 Nuclear age-related cataract, left eye H25.12 Primary open angle glaucoma (POAG) of left eye, mild stage H40.1121 Coronary artery disease I25.10 YADI (obstructive sleep apnea) G47.33 Bilateral carotid artery stenosis I65.23 Essential hypertension I10 HTN (hypertension) I10 Hyperlipemia E78.5 Prediabetes R73.03 GERD (gastroesophageal reflux disease) K21.9 Osteopenia M85.80 Obesity E66.9 Glaucoma H40.9 Seasonal allergic rhinitis J30.2 Diverticulosis of colon K57.30 Medical History Medical History Takotsubo cardiomyopathy Surgical History Surgical History History of left-sided carotid endarterectomy (02/15/13) Status post left knee replacement (09/10/15) Status post right knee replacement (05/17/18) History of bilateral tubal ligation (1974) S/P abdominal hysterectomy (~2002) Tobacco Smoking/Tobacco Use Status: Never Passive smoking exposure: Yes Alcohol Alcohol Intake: current Alcohol intake frequency: a few times a week Alcohol type: beer and wine Substance Use Substance use: Never Vital Signs and Lab Results Vital Signs Most Recent Vital Signs in EMR: Temp Pulse Resp BP Pulse Ox 36.6 C 82 20 153/77 H 97 01/01/23 10:35 01/01/23 10:35 01/01/23 10:35 01/01/23 10:35 01/01/23 10:35 Lab Results Blood Type / Crossmatch: No Data to Display Complete Blood Count: No Data to Display Complete Metabolic Panel: No Data to Display Liver Function Panel: No Data to Display Coagulation Panel: No Data to Display Cardiac Panel: No Data to Display Arterial Blood Gas: No Data to Display Venous Blood Gas: No Data to Display Pancreas Panel: No Data to Display Thyroid Panel: No Data to Display Infectious Disease: No Data to Display Blood Cultures: No Data to Display Toxicology Panel: No Data to Display Imaging and Studies Imaging and Studies Study information below may be from another EMR and interpreted by another provider. Please see original notes in EMR for more complete details. Stress Test Summary: Patient Name: BRITTANY HERRERA Unit #: [id number] Loc: DI Ordering Provider: Dano Helm Status: REG [facility] Primary Care Provider: Dano Helm Date of Exam: 08/11/17 Sex: F : 1950 Age: 67 Exam(s) [id number] NM:MPI Resting & Stress GRP *[facility]* *[facility]* [address] [place] [address] Myocardial Perfusion Imaging - SPECT Girish protocol Date of study: 08/11/2017 *PATIENT PRESENTATION* Height: 149.9cm (59in) Blood Pressure: Weight: 75kg (165lb) BSA: 1.8m^2 Referring physician: Lauren Fowler Ordering physician: Dano Helm Impressions: Negative stress test after maximal exercise. Summary: 1. Myocardial perfusion imaging: No myocardial perfusion defects noted. 2. The calculated left ventricular ejection fraction after stress: 67%. LV global systolic function is normal. No left ventricular regional motion abnormality. 3. Stress ECG conclusions: The stress ECG is negative. Buckley treadmill score: 5. This score predicts a low risk of cardiac events. 4. Stress: The target heart rate was achieved. The heart rate response to stress is normal. There is resting hypertension with a blunted response to stress. The patient experienced no chest pain during stress. Exercise capacity is average for age. Indication: R06.02. History: REASON FOR VISIT: SHORTNESS OF BREATH WITH ACTIVITY. OCCASIONAL PALPITATIONS. PT STATES SHE WAS DIAGNOSED TAKOSUBO CARDIOMYOPATHY ABOUT 8 YEARS AGO. Risk factors: Family history of coronary artery disease. Hypertension. Obesity. Dyslipidemia. Cholesterol: 165mg/dl. HDL: 58mg/dl. LDL: 94mg/dl. Triglycerides: 98mg/dl. ALLERGIES: PENICILLIN. MEDICATIONS: ASPIRIN 81 MG DAILY. ATORVASTATIN CALCIUM 10 MG DAILY. DICLOFENAC SODIUM 75 MG DAILY. HYDROCHLOROTHIAZIDE 25 MG DAILY. LISINOPRIL 40 MG DAILY. MISOPROSTOL 200 MCG DAILY. MVI 1 TAB DAILY. NAPROXEN SODIUM 220 MG BID PRN. RANITIDINE HCL 75 MG DAILY PRN. Imaging Technique: Protocol: Girish protocol. Acquisition: Gated SPECT; 1 day - rest/stress. The patient was imaged in the supine position. Attenuation correction used. Isotope administration: - Rest. Tc[99m]-sestamibi. Dose: 10.5mCi. Injection time: 10:00 AM. Injection to stress time: 00:45. - Stress. Tc[99m]-sestamibi. Dose: 32mCi. Injection time: 12:04 PM. 1-2 min before end of exercise Baseline ECG: SINUS RHYTHM. HR 65 BPM. Normal ECG. Stress protocol: + +---+ + !Stage !HR !BP (mmHg) ! + +---+ + !Baseline supine !65 !168/90 (116)! + +---+ + !Baseline standing !67 !165/86 (112)! + +---+ + !Stage I; 1.7mph, 10degrees; 3 min !118!176/88 (117)! + +---+ + !Stage II; 2.5mph, 12degrees; 3 min!129! ! + +---+ + !Peak stress !150! ! + +---+ + !Recovery; 1 min !98 !176/80 (112)! + +---+ + !Recovery; 3 min !75 !142/78 (99) ! + +---+ + !Recovery; 6 min !75 !140/74 (96) ! + +---+ + * Stress results: Maximal heart rate during stress was 150bpm (99% of maximal predicted heart rate). The maximal predicted heart rate was 152bpm. The target heart rate was achieved. The heart rate response to stress is normal. There is resting hypertension with a blunted response to stress. The rate-pressure product for the peak heart rate and blood pressure was 70013ti Hg/min. The patient experienced no chest pain during stress. Exercise capacity is average for age. Stress ECG: TREADMILL PORTION OF STRESS TEST ENDED IN 5 MINUTES & 12 SECONDS DUE TO FATIGUE. NORMAL HEART RATE AND NORMAL BLOOD PRESSURE RESPONSE TO EXERCISE. MAX HR = 150 % OF TARGET = 98 PVC X1. APPROXIMATE METS ACHIEVED = 7.05 NO ANGINA. NO SIGNIFICANT ST SEGMENT CHANGES NOTED, ALTHOUGH DIFFICULT TO ASCERTAIN DUE TO FREQUENT ARTIFACT. AVERAGE FUNCTIONAL CAPACITY FOR EXERCISE. The stress ECG is negative. Buckley treadmill score: 5. This score predicts a low risk of cardiac events. Myocardial perfusion: Imaging information: gated. The image quality was good. Left ventricular size is normal. No myocardial perfusion defects noted. Ventricular Function (Wall Motion): The calculated left ventricular ejection fraction after stress: 67%. LV global systolic function is normal. No left ventricular regional motion abnormality. Study data: Lauren Fowler MD supervised and was readily available during the procedure. This study was interpreted by [facility]. Study status: Routine. Consent: The risks, benefits, and alternatives to the procedure were explained to the patient and informed consent was obtained. Procedure: Initial setup. A baseline ECG was recorded. Surface ECG leads and manual cuff blood pressure measurements were monitored. Heart sounds: Normal. Lung sounds: Normal. Treadmill exercise testing was performed using the Girish protocol. Study completion: All catheters inserted during the procedure were removed. The patient tolerated the procedure well and was discharged from the lab. Discharge: The patient left the laboratory in stable condition. Birthdate: Patient birthdate: 1950. Sex: Gender: female. Study date: Study date: 08/11/2017. Study time: 09:30 AM. Signature Documentation: - The imaging portion of this study was interpreted by Nuclear Band Sewer Lauren Fowler MD. - The imaging portion of this study was interpreted by Nuclear Radiologist Nakul Zendejas MD. - The Stress ECG portion of this study was interpreted by Lauren Fowler MD. Electronically signed by Lauren Fowler 08/11/2017 15:24 Ordering provider: Dano Helm CC: JULIA MCDONALD,PhD,LAUREN Dictated by: Nakul Zendejas M.D. [id number] <Electronically signed by Nakul Zendejas M.D.>08/11/17 2318 Disclaimer: The [facility] radiologist is signing only the Nuclear Medicine MPI Imaging exam portion of the report. Transcribed by: Jeferson Ruiz08/11/17 2111 This is privileged, confidential information intended only for the provider named. Any use or distribution by any person other than this provider is strictly prohibited. If you receive this report in error, please notify us immediately at [phone] and return the original report to us at the address above. Thank-you. Anesthesia Assessment and Plan Anesthesia History Personal History: No History of Anesthesia Complications Family History: No Family History of Anesthesia Complications Exercise Tolerance Exercise Tolerance: Metabolic Equivalents>4 Pertinent Negatives Pertinent Negatives: No Major Cardiovascular Symptoms or Complaints and No Major Pulmonary Symptoms or Complaints Cardiac & Pulmonary Exam Cardiac Exam: Normal S1/S2 Heart Sounds Pulmonary Exam: Clear Bilateral Breath Sounds Implantable Cardiac Device Does patient have a Pacemaker or an ICD?: No Airway Exam Known Difficult Airway: No Mallampati Class: 3 Mouth Opening: Normal (> 3cm) Thyromental Distance: Greater than 3 cm Neck Range of Motion: Full ROM Neck Circumference: Normal Teeth Condition: Normal Dentition and Generalized Poor Dentition ASA Classification ASA Score: ASA 2 Emergency Case?: No NPO Status NPO Status: NPO Clears >2 hours, Solids >8 hours Anesthesia Plan Resuscitation Status: Full Code Anesthesia Technique: MAC Anesthesia Airway Planned: Natural Airway Monitors Used: Standard Monitors Preoperative Comments:: Takotsubo Cardiomyopathy, bilateral carotid artery stenosis, YADI (CPAP), GERD (Tums), CAD ([facility] 2010 with RCA dx)
[2023-01-01] MEDS: Tropicam./Phenyleph. (1/2.5%) 5 ML BTL OD ×3 (10:51→11:00)
[2023-01-01 11:06] VITALS: BMI 36.3
[2023-01-01] MEDS: Balanced Salt Soln.-PLUS 500 ML BAG OP (11:50)
[2023-01-01] MEDS: Tetracaine 0.5% 4 ML BTL OD (11:51)
[2023-01-01] MEDS: Lidocaine 1% Pres-Free 5 ML VIAL (11:52)
[2023-01-01] MEDS: Phenylephrine/Lidocaine (15/10) MG/ML 1 ML VIAL (11:53)
[2023-01-01] MEDS: Trypan Blue 0.06% 0.5 ML SYR (11:54)
[2023-01-01] MEDS: Povidone-Iodine Ophth 30 ML BTL (11:54)
[2023-01-01] MEDS: Duovisc Viscoelastic System EACH 1 EACH (11:55)
[2023-01-01 12:24] VITALS: BP 151/70; PULSE 87; RESP 20; TEMP 36.7; O2SAT 97
--- NOTE | 2023-01-01 12:26 | W.PM.DSUDISC ---
Date of service: 01/01/23 Time of Service: 12:26 Discharge Plan Disposition Patient Disposition: Home Discharge Details Attending Provider: Quinn Wagner Primary Care Provider: Clara Weller Home Meds and New Rx's Prescriptions: No Action aspirin [Adult Aspirin Regimen] 81 mg tablet,delayed release (DR/EC) 81 mg PO DAILY latanoprost 0.005 % drops 1 drp ophthalmic (eye) DAILY timolol 0.5 % drops 1 drp ophthalmic (eye) BID clotrimazole 1 % cream 1 applic topical TID Qty: 45 0RF omeprazole 20 mg capsule,delayed release(DR/EC) 20 mg PO DAILY PRN Hold Instructions: Pt Stopped/Never Started calcium carbonate [Calcium 600] 600 mg calcium (1,500 mg) tablet 1,200 mg PO DAILY Hold Instructions: Duplicate amlodipine 10 mg tablet 10 mg PO DAILY Qty: 90 3RF cholecalciferol (vitamin D3) 10 mcg (400 unit) capsule 800 unit PO DAILY atorvastatin 10 mg tablet 10 mg PO QAM Qty: 90 3RF losartan 100 mg tablet 100 mg PO DAILY Qty: 90 3RF multivitamin [Daily Multi-Vitamin] 1 EACH tablet 1 ea PO DAILY calcium carbonate [Tums] 300 mg (750 mg) Tablet,Chewable 600 mg PO PRN PRN Emergen-C 1,000 mg Powder Effervescent In Packet 1 ea PO DAILY PRN PRN Discharge Instructions Stand Alone Forms: Post-op Topical Cataract, Press Ganey (DSU) Discharge Orders Discharge Orders: Discharge Order (Routine); Ordered 01/01/23 Ordered By: Quinn Wagner DS: Diagnosis Discharge Diagnosis (1) Cortical age-related cataract, right eye: Status: Resolved (2) Nuclear age-related cataract, right eye: Status: Resolved (3) Primary open angle glaucoma (POAG) of right eye, mild stage: Status: Chronic
--- NOTE | 2023-01-01 12:28 | ROE_ITS ---
Date of service: 01/01/23 Time of Service: 12:29 Operative Note Operative Note DATE OF PROCEDURE: 01/01/23 PRE-OP DIAGNOSIS: Nuclear/cortical cataract, right eye Primary open-angle glaucoma, right eye, mild stage POST-OP DIAGNOSIS: same PROCEDURE: 1. Cataract extraction using phacoemulsification with intraocular lens implant, right eye 2. Insertion of multiple anterior segment aqueous drainage devices (Glaukos iStent inject) into trabecular meshwork, right eye SURGEON: Quinn Wagner ANESTHESIA TYPE: Local By Surgeon and MAC Refer to Anesthesia Record PATHOLOGY: none sent COMPLICATIONS: None Patient was transported to: same day Patient's condition: stable Implants: 1. Lee Clareon CCA0T0 intraocular lens 2. Glaukos iStent inject trabecular micro-bypass stents Indications: 1. Progressive decreased vision due to cataract, right eye 2. Open angle glaucoma, right eye Procedure Description: CATARACT SURGERY OPERATIVE REPORT PREOPERATIVE DIAGNOSIS: Nuclear/cortical cataract, right eye Primary open-angle glaucoma, right eye, mild stage POSTOPERATIVE DIAGNOSIS: Same OPERATION: 1. Cataract extraction using phacoemulsification with posterior chamber intraocular lens implant, right eye. 2. Insertion of multiple anterior segment aqueous drainage devices (Glaukos iStent inject) into trabecular meshwork, right eye IOL: IOL Health Coordinator/Model: Lee Clareon [id number] IOL Power: + 15.5 diopters IOL Serial Number: [id number] Optic Diameter: 6.0mm Haptic/Overall Diameter: 13.0mm PHACO INFO: Lee Centurion Vision System with OZil and Active Fluidics Cumulative Dispersed Energy (CDE): 6.42 seconds TRABECULAR MICRO-BYPASS STENT INFO: Glaukos iStent inject x 2 Reference Number: iS2 Serial Number: [id number] SURGEON: Quinn Wagner MD, MADIHA ANESTHESIA: Monitored Anesthesia Care (MAC), with local sub-tenon's anesthetic infiltration COMPLICATIONS: None SPECIMENS: None INDICATIONS FOR PROCEDURE: The patient is a 72-year-old lady with history of diminished visual acuity in both eyes secondary to the development of bilateral nuclear/cortical cataract. She also has mild stage primary open-angle glaucoma. She has recently undergone cataract surgery in the left eye with lens implantation and placement of glaucoma trabecular micro-bypass stent's. She now presents for cataract surgery with stent procedure in the right eye. See office notes for detailed information. PROCEDURE: The correct surgical eye was identified and marked as the right eye and the pupil was dilated in the preoperative area using mydriatics and cycloplegics. The dilated pupil size was 7.0 mm. The patient elected to proceed without oral sedation. The patient was brought to the operating room where cardiopulmonary monitoring was instituted and surgical time-out was performed, confirming the correct operative eye and IOL power. Topical anesthesia was administered and ophthalmic povidone-iodine 5% was instilled into the conjunctival fornices. The jack-ocular area was prepped with Betadine 10% solution and draped in the usual sterile fashion for intraocular surgery, including an aperture drape. A Tegaderm transparent film dressing was cut in half and used to cover the lashes and lid margins. Care was taken to sequester the lashes and lid margins under the Tegaderm dressing. A lid speculum was placed between the lids of the operative eye and the Lee LuxOR Revalia operating microscope was maneuvered into position. Erika scissors were then used to make a conjunctival buttonhole approximately 6mm posterior to the limbus in the inferonasal quadrant. Blunt dissection was carried out to expose bare sclera, and a blunt-tipped sub-tenon?s anesthesia cannula was introduced and passed posteriorly along the globe where non- preserved plain lidocaine was injected into posterior sub-Tenon?s space. A sideport knife was used to make a paracentesis port. VisionBlue was injected into the anterior chamber and allowed to sit for 20 seconds. Intraocular phenylephrine/lidocaine was injected into the anterior chamber. The anterior chamber was then filled with viscoelastic. A keratome knife was used to construct a 2-plane clear corneal tunnel extending 2.0mm into clear cornea. A flap was raised on the anterior capsule and capsulorhexis forceps were used to complete a continuous curvilinear capsulorhexis of 5.0 mm. Balanced salt solution was then used to perform cortical cleaving hydrodissection and nuclear hydrodelineation until the lens could be freely rotated within the capsular bag. The lens nucleus was then disassembled and removed within the capsular bag and iris plane using phacoemulsification. Residual cortical material was removed using the irrigation/aspiration handpiece. The posterior capsule was carefully polished to remove as much residual lens epithelial cells as safely possible. The capsular bag was then inflated and the anterior chamber deepened with cohesive viscoelastic. The lens implant described above was inserted into the capsular bag using the Lee Autonome Pre-loaded injector. . A Kuglen hook was used to dial the IOL into position. The anterior chamber was then slightly over-filled with viscoelastic. The microsope and the patient's head were tilted into the ideal position for viewing of the anterior chamber angle. Viscoelastic was placed on the cornea followed by a surgical gonionlens, and the anterior chamber angle landmarks were identified. The [employer] Infinite handpiece was introduced into the anterior chamber and the insertion sleeve was retracted once the injector was distal to the pupillary margin. The trocar was advanced through the central portion of the trabecular meshwork and into the back wall of Schlemm's canal in the inferonasal quadrant, with care taken to ensure the micro-insertion tube was perpendicular to the trabecular meshwork. The trabecular meshwork was lightly dimpled and the stent was injected without difficulty. The same procedure was then performed in the superiornasal quadrant. A third stent was implanted at the 3:00 position but failed to seat fully. Attempts were made to re-cannulate the stent and re-implant it but it dislodged into the anterior chamber. The remaining stents were then examined and noted to be in good position within the trabecular meshwork. The microscope and the patients head were returned to the normal coaxial position. Viscoelatic was then removed from the anterior chamber using the I/A handpiece, including the free-floating stent. The lens implant was noted to center nicely within the capsular bag. The incisions were stromally hydrated, and the anterior chamber was reformed using BSS. Then 0.5cc of moxifloxacin 1.0mg/ml were injected into the capsular bag and anterior chamber. The incisions were checked with a Weck spear and found to be secure. Several drops of ophthalmic povidone- iodine 5% were then applied to the eye followed by two drops of Imprimis combination prednisolone/moxifloxacin/nepafenac solution. The drapes were removed and a clear plastic protective eye shield was placed over the eye. The patient was then returned to Same Day Surgery in stable condition.
--- NOTE | 2023-01-01 12:51 | W.ANESPOSTOP ---
Postoperative Evaluation Date, Time and Location Date Performed: 01/01/23 Time Performed: 12:29 Patient Location: Day Surgery Unit Vital Signs Most Recent Imported Vital Signs: Most Recent Vital Signs Temp Pulse Resp BP Pulse Ox 36.7 C 87 20 151/70 H 97 01/01/23 12:24 01/01/23 12:24 01/01/23 12:24 01/01/23 12:24 01/01/23 12:24 Pain Score Most Recent Pain Score: Most Recent Pain Score Pain Level 0 01/01/23 12:24 Assessment Mental Status: Awake (Alert & Oriented to Patient Baseline) Airway and Respiratory Function: Patent airway with normal (patient baseline) respiratory exam Cardiovascular Function: Hemodynamically Stable Hydration Status: Adequately Hydrated Nausea & Vomiting: No Nausea or Vomiting Pain: Pt. Denies Any Pain Peripheral Nerve Block: Patient did not receive a nerve block
== END 2023-01-01 12:52 | disposition home or self-care (01) ==
LOC: SUR 10:25
PROVIDERS: PCP Nurse Practitioner Family; Visit Provider Ophthalmology
PROC: (CPT 66991; principal; 2023-01-01 13:30)
DX: H25.011 Cortical age-related cataract, right eye (principal); H25.11 Age-related nuclear cataract, right eye; H40.1111 Primary open-angle glaucoma, right eye, mild stage; I10 Essential (primary) hypertension; K21.9 Gastro-esophageal reflux disease without esophagitis; Z98.41 Cataract extraction status, right eye
CPT/HCPCS: 66991; 00123; V2632

== ENCOUNTER → 2023-01-11 02:37 | Outpatient (CLI) | payer MEDICARE, SELFPAY ==
--- NOTE | 2023-01-11 11:56 | DI.MAMMO_ITS ---
Exam(s) MAMMO SCREENING EXAM: MAMMO SCREENING CLINICAL HISTORY: screening, Z12.39 TECHNIQUE: Mammograms were interpreted according to the usual protocol including computer analysis w [employer] CAD system, tomosynthesis and C-view imaging. COMPARISON: 2013 through 2021 FINDINGS: The breasts are composed of mainly fatty density , Breast Density category A. No suspicious masses or suspicious microcalcifications are seen. No skin thickening or abnormal axillary lymph nodes are seen. There has been no significant change from prior exams. IMPRESSION: BI-RADS Category 1, Negative mammogram Yearly screening mammography is recommended. Breast Density - Category A, fatty density. A negative radiographic report should not delay biopsy if a dominant or clinically suspicious mass is present. Up to ten percent of cancers are not identified on mammography. A negative report may reinforce clinical impression. Adenosis and dense breasts may obscure an underlying neoplasm. False positive reports average 6 to 10%. Patient will receive a letter notifying them of these results.
== END ==
PROVIDERS: PCP Nurse Practitioner Family; Visit Provider Nurse Practitioner Family
DX: Z12.31 Encounter for screening mammogram for malignant neoplasm of breast (principal)
CPT/HCPCS: 77063; 77067

== ENCOUNTER → 2023-05-03 02:52 | Outpatient (CLI) | payer MEDICARE, SELFPAY ==
--- NOTE | 2023-05-03 | DI.CT_ITS ---
Exam(s) CT CAROTID NECK CTA EXAM: CT CAROTID NECK CTA CLINICAL HISTORY: TK CAROTID ARTERY STENOSIS, I65.23. TECHNIQUE: Imaging Protocol: Axial CT angiography was performed with multi-slice acquisition and mu lti-planar and/or 3D reconstructions. CONTRAST MATERIAL: Intravenous: Omnipaque 350 Contrast volume:100 mL COMPARISON: No exams were available for comparison FINDINGS: CTA Neck W: Common Carotid: Right: No aneurysm, occlusion or significant stenosis. Left: No aneurysm, occlusion or significant stenosis. External Carotid: Right: No aneurysm, occlusion or significant stenosis. Calcification is seen at the origin but no si gnificant stenosis is seen. Left: No aneurysm, occlusion or significant stenosis. Internal Carotid: Right: No occlusion or dissection. There is calcification seen in the proximal internal carotid art howie with 50 percent narrowing present. Left: No aneurysm, occlusion or significant stenosis. Mild calcification at the origin but no signif icant stenosis. Vertebral Artery: Right: No aneurysm, occlusion or significant stenosis. Left: No aneurysm, occlusion or significant stenosis. Lung Apices: Normal. Bones: Age-appropriate degenerative changes are seen in the cervical spine. Note is made of complete opacification of the left sphenoid sinus with mild thickening of the wall of the sinus consistent wi th chronic sinusitis. The remaining visualized paranasal sinuses are clear as are the mastoid air ce lls. Soft Tissues: Normal. IMPRESSION: 1. 50 percent stenosis seen in the proximal right internal carotid artery. 2. Mild calcification in the left cervical internal carotid artery but no significant stenosis. 3. Chronic sphenoid sinusitis. RADIATION DOSE DELIVERED: 305.88mGy.cm Total DLP 305.88mGy.cm Total DLP DATA REPOSITORY: All CT scans at this facility are submitted to the National Radiology Data Registry (NRDR) Dose Index Registry (DIR) with the [employer] (ACR). RADIATION OPTIMIZATION: All CT scans at this facility use at least one of these dose optimization te chniques: automated exposure control; mA and/or kV adjustment per patient size (includes targeted exa ms where dose is matched to clinical indication); or iterative reconstruction.
[2023-05-03 14:04] LABS: Estimated GFR 59.49 (mL/min/1.73m2)
[2023-05-03] MEDS: Omnipaque 350 MG/ML 100 ML BTL IJ (14:22)
== END ==
PROVIDERS: PCP Nurse Practitioner Family; Visit Provider Registered Nurse
DX: I65.23 Occlusion and stenosis of bilateral carotid arteries (principal)
CPT/HCPCS: 70498; 82565; J3490

== ENCOUNTER 2023-05-14 07:53 | Outpatient (CLI) | payer MEDICARE, SELFPAY ==
--- NOTE | 2023-05-14 07:45 | RT.EKG_ITS ---
APPROVED REPORT Exam: Resting ECG Reason for Exam: chest heaviness Patient Location: O HR:76 bpm ECG Measurements Heart Rate 76 AXIS AR 170 P 37 QRSd 105 QRS -23 QT 423 T 17 QTc 476 Conclusion Sinus rhythm...normal P axis, V-rate 50- 99 Borderline left axis deviation...QRS axis (-15,-29) Anterior infarct, old...Q >40mS, abnormal ST-T, V2-V5
[2023-05-14 12:47] LABS: Abs Immature Grans 0.03 10^3/uL (0.0-0.06); Absolute Basophil Count 0.06 10^3/uL (0.0-0.2); Absolute Eosinophil Count 0.34 10^3/uL (0.0-0.7); Absolute Lymphocyte Count 2.03 10^3/uL (1.2-3.4); Absolute Monocyte Count 0.75 10^3/uL (0.1-0.8); Absolute Neutrophil Count 5.08 10^3/uL (1.2-6.7); Basophils % 0.7; Eosinophils % 4.1; HCT 41.2 % (36.0-46.0); Immature Grans % 0.4; Lymphocytes % 24.5; MCH 32.2 pg (27.0-33.0); MCV 95 fL (80-95); MPV 10.3 fL (8.0-11.0); Neutrophils % 61.3; Platelet Count 385 10^3/uL (130-400); RBC 4.35 10^6/uL (3.93-5.22); RDW 12.9 % (11.7-14.6); RDW-SD 45.1 fL; WBC 8.29 10^3/uL (4.4-10.8)
[2023-05-14 13:25] LABS: ALT 32 U/L (14-59); AST 17 U/L (15-37); Albumin 4.2 g/dL (3.4-5.0); Alkaline Phosphatase 94 U/L (46-116); Anion Gap 9.8 mmol/L (3-11); BUN 17 mg/dL (7-18); CO2 26.2 mmol/L (21.0-32.0); CREATININE 0.9 mg/dL (0.55-1.02); Calcium 9.8 mg/dL (8.5-10.1); Chloride 103 mmol/L (98-107); Glucose 116 mg/dL (74-106); NT-proBNP 61 pg/mL (<300); Sodium 139 mmol/L (136-145); TSH (W/Ref FT4) 4.12 uIU/mL (0.36-3.74); Total Protein 7.9 g/dL (6.4-8.2)
[2023-05-14 13:46] LABS: FREE T4 0.97 ng/dL (0.76-1.46)
== END 2023-05-14 07:54 | disposition home or self-care (01) ==
PROVIDERS: PCP Nurse Practitioner Family; Visit Provider Nurse Practitioner Family
DX: I25.10 Atherosclerotic heart disease of native coronary artery without angina pectoris (principal); R06.02 Shortness of breath
CPT/HCPCS: 36415; 80053; 93010; 83880; 84439; 84443; 85025

== ENCOUNTER → 2023-05-17 01:34 | Outpatient (CLI) | payer MEDICARE, SELFPAY ==
--- NOTE | 2023-05-17 07:30 | DI.NM_ITS ---
APPROVED REPORT Exam: Pharmacologic Patient Location: Out-Patient Room/Bed: Stress Nurse: Candy Villalba RN Ordering Provider:ISAI MORGANSTANFORD, Contact Number: [phone] BMI: 36.78 Baseline Rhythm: Sinus Rhythm Indications: SOB, chest heaviness, hx CAD Medical History Medical History: Takotsubo cardiomyopathy, fatigue, SOB, CAD, HLD, preDM, YADI, bilateral carotid juani ry stenosis, HTN, GERD, obesity, glaucoma Cardiac Medications: Aspirin, omeprazole, amlodipine, atorvastatin, losartan Allergies: Penicillins Cardiac Risk Factors: Family Hx, HTN, HLD, CVD, preDM, Obesity Previous Cardiac Procedures: Cath 2010 Pretest Chest Pain Characteristics: None Exercise History: Indeterminate Physical Disabilities: None Lung Sounds: Clear to auscultation Heart Sounds: Regular Stress Test Details Test: Exercise stress converted to pharmacologic stress due to failure to obtain a diagnostic stress test. Nuclear Acquisition: Rest Tc-99m/Stress Tc-99m 1 day Rest Isotope: Tc-99m Sestamibi. Dose: 10.9 Date: 05/17/2023 Injection Time: 0840 Stress Isotope: Tc-99m Sestamibi. Dose: 32.1 Date: 05/17/2023 Injection Time: 1005 HR Resting HR Supine: 66 bpm Max Heart Rate (APMHR): 147 bpm Resting HR Standin bpm Target HR (85% APMHR): 125 bpm Max HR Achieved: 130 bpm % of APMHR: 88 Recovery HR: 87 bpm HR response to stress: Normal HR response to stress BP Resting BP Supine: 142/70 mmHg Resting BP Standin/74 mmHg Max BP: 158/80 mmHg Recovery BP: 132/60 mmHg BP response to stress: Normal blood pressure response to stress. ECG Resting ECG: Sinus Rhythm Ectopy: none Stress ECG: Sinus Tachycardia ST Change: No significant ST segment changes noted Arrhythmia: None Recovery ECG: Sinus Rhythm Recovery ST Change: No significant ST segment changes noted Recovery Arrhythmia: None Clinical Reason for Termination: Dyspnea Stress Symptoms: Dyspnea Exercise duration: 4 min29 sec Highest Stage Reached: Stage 1: 1.7 mph at 10% grade. Exercise capacity: 4.64 METs Angina Score: Exercise-Limiting Buckley Treadmill Score: -4.5 Rate Pressure Product: [id number] Stress ECG Conclusion 1. Resting electrocardiogram showed low voltage old anterior infarct 2. Patient underwent testing using a combination exercise and pharmacologic stress with regadenoson 3. Peak heart rate achieved was 88% of predicted for age 4. Electrocardiographic portion of the test was negative for myocardial ischemia 5. See MPI report Buckley Treadmill Score is -4.5 which is Moderate risk. Stress Test Summary STAGE Time (mins) Speed (mph) Grade (%) HR BP SpO2 SYMPTOMS METS Supine 66 142/70 93 Standing 71 150/74 1 3 1.7 10 112 150/74 4.5 1 min post Lexiscan injection 126 158/80 95 3 min post Lexiscan injection 96 144/68 6 min post Lexiscan injection 87 132/60 SOB limiting ability to reach THR. Transitioned to lexiscan paired with low level exercise of 1.0MPH 0% grade at 03:21 exercise time. SOB resolved with rest. MPI Conclusion Myocardial perfusion is normal. There is no ischemia or evidence of prior infarction EF is 60%. Wall motion is normal Radiologist Interpretation Radiologist agrees with Curriculum Assistant Principal's Interpretation. Radiologist Interpretation by: Cristian Galvan MD Interpretation Date/Time: 05/17/2023 13:14:24
--- NOTE | 2023-05-17 07:30 | DI.RAD_ITS ---
Exam(s) XR CHEST 2V PA LATERAL EXAM: XR CHEST 2V PA LATERAL CLINICAL HISTORY: SOB, CHEST HEAVINESS, R06.02, R07.89 TECHNIQUE: 2D digital imaging was performed. COMPARISON: No exams were available for comparison FINDINGS: HEART: Normal size. Aorta: Not dilated. PULMONARY VASCULATURE: Normal. LUNGS: Clear. PLEURAL SPACE: No pleural effusion or pneumothorax. BONE:Unremarkable for age. Soft tissues: Unremarkable. IMPRESSION: No acute abnormality. DATA REPOSITORY: RADIATION DOSE DELIVERED:
[2023-05-17] MEDS: Regadenoson 0.4 MG/5 ML SYR IVP (10:20)
== END ==
PROVIDERS: PCP Nurse Practitioner Family; Visit Provider Nurse Practitioner Family
DX: R06.02 Shortness of breath (principal); R07.89 Other chest pain
CPT/HCPCS: 78452; 93016; 93018; 71046; 93017; J2785

== ENCOUNTER 2023-08-04 17:12 | Emergency (ER) | payer MEDICARE, SELFPAY ==
[2023-08-04] VITALS (9 sets, daily range): BP systolic 141–200; BP diastolic 52–121; PULSE 74–87; RESP 12–22; TEMP 37.1; O2SAT 95–100
--- NOTE | 2023-08-04 17:15 | RT.EKG_ITS ---
APPROVED REPORT Exam: Resting ECG Reason for Exam: Tingling in Left Hand Patient Location: E HR:75 bpm ECG Measurements Heart Rate [address] 179 P 47 QRSd 101 QRS -24 QT 400 T 3 QTc 445 Conclusion Sinus rhythm...normal P axis, V-rate 60- 99 Atrial premature complex...SV complex w/ short R-R interval Low voltage, extremity and precordial leads...extremity<0.5mV, precordial<1.0mV Normal sinus rhythm at a rate of 75. Left axis deviation. Interventricular conduction delay. CT an d QTc within normal limits. ST segment flattening in aVF. Compared to prior ST segment depression a ppears new. Prior dated earlier this year. No ST segment abnormalities. No acute injury pattern.
--- NOTE | 2023-08-04 17:21 | W.ED.GENAD ---
Discharge Plan Disposition Patient Disposition: Transfer-Acute Inpatient Care Specific Acute Inpt Facility: [facility] Discharge Details Clinical Impression: Brain TIA, Numbness of left hand Primary Care Provider: Clara Weller ED Provider: Andrez Amaya Home Meds and New Rx's Prescriptions: No Action aspirin [Adult Aspirin Regimen] 81 mg tablet,delayed release (DR/EC) 81 mg PO DAILY calcium carbonate [Calcium 600] 600 mg calcium (1,500 mg) tablet 1,200 mg PO DAILY Hold Instructions: Duplicate amlodipine 10 mg tablet 10 mg PO DAILY Qty: 90 3RF cholecalciferol (vitamin D3) 10 mcg (400 unit) capsule 800 unit PO DAILY atorvastatin 10 mg tablet 10 mg PO QAM Qty: 90 3RF losartan 100 mg tablet 100 mg PO DAILY Qty: 90 3RF multivitamin [Daily Multi-Vitamin] 1 EACH tablet 1 ea PO DAILY Tums 300 mg (750 mg) Tablet,Chewable 600 mg PO PRN PRN Emergen-C 1,000 mg Powder Effervescent In Packet 1 ea PO DAILY PRN PRN acetaminophen 500 mg capsule 500 mg PO QID PRN naproxen sodium [Aleve] 220 mg capsule 220 mg PO DAILY Discharge Data Discharge Date/Time-TO BE ENTERED AT DEPARTURE: 08/05/23 00:32 HPI General Date/Time Provider Initiated Documentation: 08/04/23 17:21. HPI Narrative: MDM This is an overall well-appearing normothermic and not tachycardic 73-year-old female with vascular risk factors of hypertension hyperlipidemia prediabetes with left hand arm and face numbness concerning for possibility of TIA versus CVA. I am not concerned for LVO based on no visual changes, aphasia, nor neglect so I did not obtain a CTA. Patient has an elevated ABCD2 score of four making her moderate risk. Based on the limited amount of deficits that the patient is currently having and her symptoms spanning multiple days, I do not feel that she is a candidate for tPA as I feel that the risks outweigh the benefits. No tonic-clonic activity so my suspicion is low for seizure and I do not feel that the patient requires transfer for EEG. No nuchal rigidity nor fevers so my suspicion is low for meningitis and I do not feel that the patient requires a lumbar puncture. No pain out of proportion to suggest necrotizing soft tissue infection. 6:15 PM Basic metabolic panel showing no TAMELA. No hyperglycemia. Negative reassuring troponin. CBC lacks leukocytosis and thrombocytopenia. There is macrocytosis but no anemia. CT head negative on my preliminary read. I have asked health community recreation programmer Rachelle to reach out to neurology at [facility]. 7:36 PM I spoke to Dr. Dave from neuro at [facility]. He advised load with 600 mg clopidogrel and 324 mg ASA and 80mg atorvastation. He also advised a small bolus IVF to increase perfusion. He also advised CTA head & neck, brain MRI, telemetry, and echo with vascular consult. Will allow permissible hypertension. 9 PM I spoke with Dr[address] Kelly lucas from [facility] neurology who agreed to graciously accept the patient to his service in the setting of a TIA which he was concerned was possibly secondary to thalamic ischemia. Will send patient with a basic crew. Chronic conditions affecting the care of the patient: Hypertension diabetes carotid stenosis History obtained from an outside historian: N/A External record review: [facility] EMR Diagnostic interpretations performed by me: Per my independent interpretation chest x-ray shows: No acute cardiopulmonary process Per my independent interpretation EKG shows: Normal sinus rhythm at a rate of 75. Left axis deviation. Interventricular conduction delay. FL and QTc within normal limits. ST segment flattening in aVF. Compared to prior ST segment depression appears new. Prior dated earlier this year. No ST segment abnormalities. No acute injury pattern. ]Medications: Clopidogrel atorvastatin aspirin Social determinants of health affecting disposition: N/A Management discussed with: Neurology at [facility] Treatment/interventions considered: Lytics but deferred based on recommendation from neurology. Response to therapies provided: No recurrent symptoms in the ED HPI This is a 73-year-old female with hypertension hyperlipidemia prediabetes arriving to the emergency department via private vehicle in the setting of a left-sided hand and arm numbness and tingling. Patient notes that her symptoms have been intermittent for the past approximately 1 week. They have been increasing in frequency which led her to come to the emergency department. She also notes some numbness in her tongue on the left side and in her left upper lip. She denies any unusual headaches. She denies dysuria frequency chest pain and difficulty breathing. She occasionally gets some shortness of breath when ambulating but reports that this is not new or different. She occasionally drinks ethanol but denies routine tobacco and illicits. She has been seen in the past by vascular at [facility]. Exam General: Well-appearing in no acute distress speaking in complete sentences. Head: Normocephalic, atraumatic. Eye:[Pupils equal, round reactive to light.] Extraocular eye movements intact. No conjunctival injection. No scleral icterus. Ear, nose, mouth, throat: Grossly normal inspection. Normal voice, handling secretions normally. Neck: Trachea midline. Cardiovascular: Well-perfused distal extremities. Regular rate and rhythm. Respiratory: Nonlabored respiration. Clear lungs bilaterally Gastrointestinal: Nondistended abdomen. Soft nontender. No rebound. No guarding. Musculoskeletal: No significant lower extremity pitting edema. Moving all 4 extremities spontaneously. Skin: Normal for age and race, grossly normal temperature and turgor. No acute rash. Neurologic: GCS 15. Alert and oriented to person place and time. Patient does have some minor sensory deficits in the V2 distribution left side of her face. Symmetrical smile. No focal motor deficits. Patient does have some mild left-sided sensory deficits in the left side of her face just above her left lip and in her left hand. No pronator drift. Finger rolling intact. No dysdiadochokinesia. Please see neurology assessment for NIH stroke scale. Psychiatric: Mood and manner are appropriate. Grooming and personal hygiene are appropriate. Related Data Home Medications Medication Instructions Recorded Confirmed multivitamin (Daily Multi-Vitamin 1 ea PO DAILY 08/04/17 08/04/23 tablet) ascorbic acid 1,000 1 ea PO DAILY PRN PRN 05/12/18 08/04/23 fn-[id number]-niwtrmaz powder effervescent pack (Emergen-C) calcium carbonate (Tums) 600 mg PO PRN PRN 05/12/18 08/04/23 aspirin 81 mg tablet,delayed 81 mg PO DAILY 06/29/18 08/04/23 release (Adult Aspirin Regimen) calcium carbonate (Calcium 600) 1,200 mg PO DAILY 03/02/22 08/04/23 cholecalciferol (vitamin D3) 10 800 unit PO DAILY 05/14/22 08/04/23 mcg (400 unit) capsule amlodipine 10 mg tablet 10 mg PO DAILY #90 tabs 11/30/22 08/04/23 atorvastatin 10 mg tablet 10 mg PO QAM #90 tabs 05/14/23 08/04/23 losartan 100 mg tablet 100 mg PO DAILY #90 tabs 05/14/23 08/04/23 acetaminophen 500 mg capsule 500 mg PO QID PRN 08/04/23 08/04/23 naproxen sodium 220 mg capsule 220 mg PO DAILY 08/04/23 08/04/23 (Aleve) Previous Rx's Medication Instructions Recorded amlodipine 10 mg tablet 10 mg PO DAILY #90 tabs 11/30/22 atorvastatin 10 mg tablet 10 mg PO QAM #90 tabs 05/14/23 losartan 100 mg tablet 100 mg PO DAILY #90 tabs 05/14/23 Allergies Allergy/AdvReac Type Severity Reaction Status Date / Time Penicillins Allergy Intermediate Skin Rash Unverified 08/04/23 17:23 Medical Decision Making Quality:SDOH Health Related Social Needs: No Data to Display PFSH All Active Problems (Updated 08/04/23 @ 21:03 by Andrez Amaya MD) Numbness of left hand (Acute) Brain TIA (Acute) Chest heaviness (Acute) Negative MPI stress test 06/05 Coronary artery disease (Chronic) [facility] 2010 with RCA disease YADI (obstructive sleep apnea) (Chronic) PSG 11/08/18. CPAP Bilateral carotid artery stenosis (Chronic) Essential hypertension (Chronic) Primary open angle glaucoma (POAG) of left eye, mild stage (Chronic) HTN (hypertension) (Chronic) Hyperlipemia (Chronic) Prediabetes (Chronic) GERD (gastroesophageal reflux disease) (Chronic) Osteopenia (Chronic) Dexa 2021 Obesity (Chronic) Seasonal allergic rhinitis (Chronic) Diverticulosis of colon (Chronic) Medical History (Updated 08/04/23 @ 21:03 by Andrez Amaya MD) Takotsubo cardiomyopathy Surgical History (Updated 05/19/23 @ 07:10 by Clara Weller NP) History of left-sided carotid endarterectomy (02/15/13) Status post left knee replacement (09/10/15) Status post right knee replacement (05/17/18) History of bilateral tubal ligation (1974) S/P abdominal hysterectomy (~2002) Family History Mother , 79 CAD (coronary artery disease) Alzheimer disease Hyperlipidemia Asthma Hypertension Father , 54 Alcohol abuse Heart disease Sister Hyperlipidemia Asthma Hypertension Sister Asthma Hypertension Brother Asthma RA (rheumatoid arthritis) Son No problems noted. Paternal Grandfather , 62 No problems noted. Paternal Grandmother , 54 RA (rheumatoid arthritis) Maternal Grandfather Diabetes Maternal Grandmother No problems noted. Social History Smoking/Tobacco Use Status: Never Smoking risk assessment performed?: Yes Alcohol Intake: current Alcohol Intake frequency: a few times a week Alcohol type: beer and wine Drug use: Never Caregiver/Support person: No Household members: spouse Housing: house Communication Needs: Corrective Lenses Do you need help understanding health information?: Always Pets and animals: No Sexually active: No Do you think of yourself as: straight/heterosexual Current gender identity: female What is your relationship status?: How often do you talk on the phone with friends or family?: three or more times per week How often do you get together with friends or relatives?: three or more times per week How often do you attend anabaptism or christian services?: 4 or more times per year Do you belong to any clubs or organized social groups?: yes Panel score (0-1 are the most socially isolated patients): 4 What type of physical activity do you participate in: walking and other Details: gardening/ stretching Duration: 30-45 minutes/day Frequency: 1-2 times per week Palak/Scientology: Mormonism Special palak needs: No Seatbelt use: always Helmet use: No Drive intox or ride w/intox scoop driver: No Do you feel safe at home: Yes Do you feel safe in your relationship?: Yes
[2023-08-04 17:45] LABS: Abs Immature Grans 0.03 10^3/uL (0.0-0.06); Absolute Basophil Count 0.05 10^3/uL (0.0-0.2); Absolute Eosinophil Count 0.36 10^3/uL (0.0-0.7); Absolute Lymphocyte Count 2.53 10^3/uL (1.2-3.4); Absolute Monocyte Count 0.79 10^3/uL (0.1-0.8); Absolute Neutrophil Count 5.39 10^3/uL (1.2-6.7); Basophils % 0.5 %; Eosinophils % 3.9 %; HCT 45.2 % (36.0-46.0); Immature Grans % 0.3 %; Lymphocytes % 27.7 %; MCH 31.8 pg (27.0-33.0); MCHC 33.2 % (32.0-36.0); MCV 96 fL (80-95); MPV 8.9 fL (8.0-11.0); Monocytes % 8.6 %; Platelet Count 396 10^3/uL (130-400); RBC 4.71 10^6/uL (3.93-5.22); RDW 13.3 % (11.7-14.6); RDW-SD 47.3 fL; WBC 9.15 10^3/uL (4.4-10.8)
[2023-08-04 18:03] LABS: Anion Gap 9.7 mmol/L (3-11); BUN 19 mg/dL (7-18); CO2 26.3 mmol/L (21.0-32.0); CREATININE 0.8 mg/dL (0.55-1.02); Calcium 10.1 mg/dL (8.5-10.1); Chloride 99 mmol/L (98-107); Estimated GFR 77.27 (mL/min/1.73m2); Glucose 101 mg/dL (74-106); Sodium 135 mmol/L (136-145); Troponin I < 50 ng/L (< or =60)
--- NOTE | 2023-08-04 18:06 | DI.CT_ITS ---
Exam(s) CT HEAD WO EXAM: CT HEAD WO CLINICAL HISTORY: Left hand numbness. TECHNIQUE: Imaging Protocol: Axial computed tomography images with coronal and sagittal reformatted images were created and reviewed COMPARISON: No exams were available for comparison FINDINGS: Ventricles and Extra axial spaces: Normal in size and morphology for the patient's age. Hemorrhage: None. Cerebral parenchyma: No evidence of acute infarct or mass. Mild atrophy. Old left basal ganglia lacu donte infarct. Midline shift: None. Brainstem/Cerebellum: Normal. Calvarium: Normal. Visualized Paranasal sinuses:Clear. Mastoids: Clear. Soft Tissues: Unremarkable. ORBITS: Unremarkable. PITUITARY: Not enlarged. IMPRESSION: No acute intracranial process. RADIATION DOSE DELIVERED: 731.08mGy.cm Total DLP DATA REPOSITORY: All CT scans at this facility are submitted to the National Radiology Data Registry (NRDR) Dose Index Registry (DIR) with the [employer] (ACR). RADIATION OPTIMIZATION: All CT scans at this facility use at least one of these dose optimization te chniques: automated exposure control; mA and/or kV adjustment per patient size (includes targeted exa ms where dose is matched to clinical indication); or iterative reconstruction.
--- NOTE | 2023-08-04 19:30 | DI.CT_ITS ---
Exam(s) CT BRAIN NECK CTA EXAM: CT BRAIN NECK CTA CLINICAL HISTORY: TIA left-sided symptoms. TECHNIQUE: Imaging Protocol: Axial CT angiography was performed with multi-slice acquisition and mu lti-planar and/or 3D reconstructions. CONTRAST MATERIAL: Intravenous: Omnipaque 350 Contrast volume:structured data in ml COMPARISON: CT,NM,TMT NM MPI REST STRESS GRP from 05/17/2023 FINDINGS: CTA Neck W: Aortic arch anatomy: The aortic arch anatomy is conventional there is some calcified plaque at the or igin of the great vessels off the aortic arch. Mild-moderate stenosis noted at the origin left subcl hazel artery. No evidence of intimal flap in the visualized aortic arch. Anterior circulation: Both common carotid arteries ascend with normal luminal diameters. There is significant plaque at the level the right carotid bulb and proximal right ICA with approxima tely 60 percent stenosis in the proximal right ICA at this level. Above this level the right ICA is patent in the upper neck. On the left side there is a lesser amount of plaque evident and no significant stenosis at the origin of the left ICA. Left ICA above this level in the upper neck is patent. Posterior circulation: Both vertebral arteries originate off of the subclavian arteries. There is no stenosis at the origin of the left vertebral artery off of the left subclavian artery. However, there is significant steno sis at the origin of the right vertebral artery off of the right subclavian artery. Both vertebral arteries exhibit normal luminal diameters within the foramen transversarium. No significant luminal narrowing nor dissection. Both vertebral arteries contribute to the formation of the basilar artery at the skull base. CTA Brain W: Anterior circulation: Both internal carotid arteries are patent in the skull base-carotid canals as well as within the cave rnous sinuses. The supraclinoid aspects of the ICAs are patent. Both A1 segments are patent as are the anterior cer ebral arteries and there is no evidence of aneurysm at the level of the anterior communicating artery . Both middle cerebral arteries are patent with no evidence of significant stenosis nor intraluminal th rombus. There also no aneurysms of these vessels. Posterior circulation: The basilar artery ascends in the midline. Distally it gives off patent bilateral superior cerebella r arteries. Above this level the basilar artery terminates as patent bilateral posterior cerebral arteries. Righ t vertebral artery P1 segment is thinner than the left but there is a posterior communicating artery on the right side of the afoxfb-oq-Gvliwz evident. There is no evidence of aneurysm at the tip of the basilar artery nor elsewhere in the aalqnf-dz-Afmn is. CT BRAIN: There is no evidence of intracranial hemorrhage, mass effect, or shift of midline structures. There are no extra-axial fluid collections. Ventricles are not enlarged or shifted. There are no ring enh ancing lesions in the brain and no abnormal meningeal enhancement. Opacification of the left sphenoid sinus. Others paranasal sinuses are clear. IMPRESSION: 1. There is significant calcified and noncalcified plaque at the right carotid bulb-proximal right IC A with moderate stenosis at this level, estimated approximately 60 percent. No significant atheroscl erotic narrowing on the left side at this level. 2. There is moderate-severe stenosis at the origin of the right vertebral artery off of the right quach bclavian artery. Similar findings not seen on the left side. Both vertebral arteries ascend with no rmal luminal diameters in the foramen transverse area, and both contribute to the formation of the ba silar artery at the skull base. 3. Patent intracranial arteries. No large vessel stenosis or occlusion. No aneurysms evident. 4. No ring enhancing lesions in the brain and there is no abnormal meningeal enhancement. RADIATION DOSE DELIVERED: 1,849.89mGy.cm Total DLP DATA REPOSITORY: All CT scans at this facility are submitted to the National Radiology Data Registry (NRDR) Dose Index Registry (DIR) with the [employer] (ACR). RADIATION OPTIMIZATION: All CT scans at this facility use at least one of these dose optimization te chniques: automated exposure control; mA and/or kV adjustment per patient size (includes targeted exa ms where dose is matched to clinical indication); or iterative reconstruction.
[2023-08-04] MEDS: Omnipaque 350 MG/ML 100 ML BTL IJ (19:57)
[2023-08-04] MEDS: Normal Saline - Diluent 50 ML VIAL IJ (19:58)
[2023-08-04] MEDS: Atorvastatin 40 MG TAB 80 MG PO (20:08)
[2023-08-04] MEDS: Aspirin 81 MG CHEW 324 MG CH (20:08)
[2023-08-04] MEDS: Clopidogrel 300 MG TAB 600 MG PO (20:08)
[2023-08-04] MEDS: Normal Saline 500 ML IV (20:10)
--- NOTE | 2023-08-04 20:28 | DI.VRAD_ITS ---
PROCEDURE INFORMATION: Exam: CTA Head With Contrast, Arteriography Exam date and time: 08/04/2023 7:55 PM Age: 73 years old Clinical indication: Stroke-like symptoms; Other: TIA left-sided symptoms TECHNIQUE: Imaging protocol: Computed tomographic angiography of the head with contrast. Exam focused on the arteries. 3D rendering (Not supervised by radiologist): MIP and/or 3D reconstructed images were created by the technologist. Contrast material: 350; Contrast volume: 85 ml; Contrast route: INTRAVENOUS (IV); COMPARISON: CT HEAD WO 08/04/2023 6:02 PM FINDINGS: ANTERIOR CIRCULATION: Right internal carotid artery: Intracranial segment is patent with no significant stenosis. No aneurysm. Right middle cerebral artery: No occlusion or significant stenosis. No aneurysm. Right anterior cerebral artery: No occlusion or significant stenosis. No aneurysm. Left internal carotid artery: Intracranial segment is patent with no significant stenosis. No aneurysm. Left middle cerebral artery: No occlusion or significant stenosis. No aneurysm. Left anterior cerebral artery: No occlusion or significant stenosis. No aneurysm. POSTERIOR CIRCULATION: Right vertebral artery: No occlusion or significant stenosis. No aneurysm. Left vertebral artery: No occlusion or significant stenosis. No aneurysm. Basilar artery: No occlusion or significant stenosis. No aneurysm. Right posterior cerebral artery: No occlusion or significant stenosis. No aneurysm. Left posterior cerebral artery: No occlusion or significant stenosis. No aneurysm. Brain: No definite mass, mass effect, or midline shift. Cerebral ventricles: No ventriculomegaly. Bones/joints: Unremarkable. No acute fracture. Soft tissues: Unremarkable. Chronic left sphenoid sinusitis IMPRESSION: No large vessel stenosis or occlusion. PROCEDURE INFORMATION: Exam: CTA Neck With Contrast Exam date and time: 08/04/2023 7:55 PM Age: 73 years old Clinical indication: Stroke-like symptoms; Other: TIA left-sided symptoms TECHNIQUE: Imaging protocol: Computed tomographic angiography of the neck with contrast. Exam focused on the cervical segments of the vasculature. 3D rendering (Not supervised by radiologist): MIP and/or 3D reconstructed images were created by the technologist. Contrast material: 350; Contrast volume: 85 ml; Contrast route: INTRAVENOUS (IV); COMPARISON: CT CAROTID NECK CTA 05/03/2023 2:19 PM FINDINGS: Right common carotid artery: No stenosis. No dissection or occlusion. Right internal carotid artery: Mixed plaque at the bulb with moderate stenosis. No dissection or occlusion. Right external carotid artery: No occlusion or stenosis of the origin. Left common carotid artery: No stenosis. No dissection or occlusion. Left internal carotid artery: No stenosis of the extracranial segment. No dissection or occlusion. Left external carotid artery: No occlusion or stenosis of the origin. Right vertebral artery: Moderate to severe stenosis at the origin. No dissection or occlusion. Left vertebral artery: No stenosis. No dissection or occlusion. Soft tissues: Normal. No significant soft tissue swelling. Bones/joints: No acute fracture. IMPRESSION: Moderate stenosis of the right carotid bulb Moderate to severe stenosis at the right vertebral artery origin No large vessel occlusion REFERENCES: NASCET CRITERIA. The degree of stenosis in the cervical segment of the internal carotid artery is based on NASCET criteria. Normal is no stenosis. Mild is less than 50% stenosis. Moderate is 50-69% stenosis. Severe is 70% to 99% stenosis. Total occlusion is no detectable patent lumen. Dictated and Authenticated by: Gavin Durham MD. Ordering:RU Maguire MD
--- NOTE | 2023-08-04 21:45 | DI.RAD_ITS ---
Exam(s) XR PORTABLE CHEST AP EXAM: XR PORTABLE CHEST AP CLINICAL HISTORY: TIA. TECHNIQUE: 2D digital imaging was performed. COMPARISON: CR XR CHEST 2V PA LATERAL from 05/17/2023 FINDINGS: Single AP portable view. Heart size is upper normal. The mediastinum is not widened. Lungs are clear. No infiltrates nor obvious pleural effusions. IMPRESSION: No acute pulmonary findings on this single AP portable view of the chest. DATA REPOSITORY: RADIATION DOSE DELIVERED:
--- NOTE | 2023-08-04 23:41 | DI.VRAD_ITS ---
PROCEDURE INFORMATION: Exam: XR Chest Exam date and time: 08/04/2023 10:06 PM Age: 73 years old Clinical indication: TIA TECHNIQUE: Imaging protocol: Radiologic exam of the chest. Views: 1 view. COMPARISON: CR XR CHEST 2V PA LATERAL 05/17/2023 8:20 AM FINDINGS: Tubes, catheters and devices: Cardiac leads superimposed over the chest. Lungs: No alveolar infiltrate. Pleural spaces: No pneumothorax. No pleural fluid collection. Heart/Mediastinum: Normal heart size. Vasculature: Calcific thoracic aorta. Bones/joints: Spinal degenerative changes. IMPRESSION: No active pulmonary disease. Dictated and Authenticated by: Austen Aly MD. Ordering:RU Maguire MD
[2023-08-05 00:12] VITALS: BP 143/59; PULSE 74; RESP 18; TEMP 36.8; O2SAT 98
== END 2023-08-05 00:32 | disposition short-term general hospital (02) ==
PROVIDERS: Emergency Provider Emergency Medicine; PCP Nurse Practitioner Family
DX: G45.9 Transient cerebral ischemic attack, unspecified (principal); I10 Essential (primary) hypertension; E78.5 Hyperlipidemia, unspecified; I25.10 Atherosclerotic heart disease of native coronary artery without angina pectoris; I25.2 Old myocardial infarction; Z79.82 Long term (current) use of aspirin; R20.2 Paresthesia of skin; Z79.899 Other long term (current) drug therapy
CPT/HCPCS: 36415; 70496; 70498; 80048; 93005; 96360; 99285; 70450; 71045; 84484; 85025; 93010; J3490

== ENCOUNTER 2023-09-01 11:41 | Outpatient (CLI) | payer MEDICARE, SELFPAY ==
[2023-09-01 11:14] LABS: HCT 43.4 % (36.0-46.0); HGB 14.4 g/dL (11.2-15.7); MCH 31.7 pg (27.0-33.0); MCHC 33.2 % (32.0-36.0); MCV 96 fL (80-95); MPV 9.1 fL (8.0-11.0); Platelet Count 344 10^3/uL (130-400); RBC 4.54 10^6/uL (3.93-5.22); RDW 13.1 % (11.7-14.6); RDW-SD 46.4 fL; WBC 11.72 10^3/uL (4.4-10.8)
[2023-09-01 12:56] LABS: ALT 25 U/L (14-59); AST 22 U/L (15-37); Albumin 3.7 g/dL (3.4-5.0); Alkaline Phosphatase 120 U/L (46-116); Anion Gap 10.5 mmol/L (3-11); BUN 13 mg/dL (7-18); Bilirubin, Total 1.2 mg/dL (0.2-1.0); CO2 27.5 mmol/L (21.0-32.0); CREATININE 0.8 mg/dL (0.55-1.02); Chloride 101 mmol/L (98-107); Estimated GFR 77.27 (mL/min/1.73m2); Glucose 99 mg/dL (74-106); Potassium 3.7 mmol/L (3.5-5.1); Sodium 139 mmol/L (136-145); Total Protein 7.8 g/dL (6.4-8.2)
[2023-09-01 13:20] LABS: Absolute Basophil Count 0.12 10^3/uL (0.0-0.2); Absolute Eosinophil Count 2.46 10^3/uL (0.0-0.7); Absolute Lymphocyte Count 1.99 10^3/uL (1.2-3.4); Absolute Monocyte Count 1.17 10^3/uL (0.1-0.8); Absolute Neutrophil Count 5.98 10^3/uL (1.2-6.7)
[2023-09-01 13:21] LABS: Diff Comment Manual Differential; RBC Morphology Normal
== END 2023-09-01 11:42 | disposition home or self-care (01) ==
LOC: LBO 11:41
PROVIDERS: PCP Nurse Practitioner Family; Visit Provider Nurse Practitioner Family
DX: R19.7 Diarrhea, unspecified (principal)
CPT/HCPCS: 36415; 80053; 85025

== ENCOUNTER 2023-09-01 16:01 | Outpatient (REF) | payer MEDICARE, SELFPAY ==
[2023-09-02 11:09] LABS: Campylobacter PCR Negative (Negative); Salmonella PCR Negative (Negative); Shiga Toxin PCR Negative (Negative); Shigella/Enteroinvasive Ecoli Negative (Negative)
== END 2023-09-01 16:02 | disposition home or self-care (01) ==
LOC: LBN 16:01
PROVIDERS: PCP Nurse Practitioner Family; Visit Provider Nurse Practitioner Family
DX: R19.7 Diarrhea, unspecified (principal)
CPT/HCPCS: 87329; 87505; 87177

== ENCOUNTER 2023-09-06 20:00 | Outpatient (CLI) | payer MEDICARE, SELFPAY ==
[2023-09-06 15:40] LABS: Hemoglobin A1C 6.1 % (<5.7)
[2023-09-06 15:54] LABS: Calculated LDL 62 mg/dL (<100); Cholesterol 126 mg/dL (<200); HDL Cholesterol 48 mg/dL (40-60); Triglyceride 80 mg/dL (<150); Vitamin D 25 Total 42.8 ng/mL (30-100)
[2023-09-07 00:14] LABS: HBs Antibody, Quant <3.1 mIU/mL (See Note); Hep A Total Ab w Rflx IgM Negative (Negative); Hep B Surface Ab Negative (See Note); Hepatitis B Core Antibody Negative (Negative); Hepatitis B Surface Antigen Negative (Negative)
== END 2023-09-06 20:01 | disposition home or self-care (01) ==
LOC: LBO 20:01
PROVIDERS: PCP Nurse Practitioner Family; Visit Provider Nurse Practitioner Family
DX: R19.7 Diarrhea, unspecified (principal); M85.80 Other specified disorders of bone density and structure, unspecified site; E78.5 Hyperlipidemia, unspecified; R73.03 Prediabetes; I10 Essential (primary) hypertension; Z11.59 Encounter for screening for other viral diseases
CPT/HCPCS: 36415; 80061; 82306; 86704; 86706; 86709; 87340; 87493; 83036; 84443

== ENCOUNTER 2023-09-07 15:42 | Outpatient (REF) | payer MEDICARE, SELFPAY ==
[2023-09-07 13:45] LABS: C Diff PCR Negative (Negative)
== END 2023-09-07 15:43 | disposition home or self-care (01) ==
LOC: LBN 15:42
PROVIDERS: PCP Nurse Practitioner Family; Visit Provider Nurse Practitioner Family
DX: R19.7 Diarrhea, unspecified (principal)
CPT/HCPCS: 87493; 83630

== ENCOUNTER 2024-01-04 18:09 | Outpatient (REF) | payer MEDICARE, SELFPAY ==
[2024-01-04 13:39] LABS: Bilirubin Negative (Negative); Blood Trace-intact (Negative); Clarity Clear (Clear); Glucose Negative (Negative); Ketones Negative (Negative); Leukocyte Esterase Negative (Negative); Nitrite Negative (Negative); Specific Gravity 1.015 (1.005-1.025); Urobilinogen 0.2 mg/dL (Up to 0.2); pH 7.5 (5-8)
[2024-01-04 14:01] LABS: Bacteria Negative HPF (Negative); C & S Indicated? No; Casts Negative LPF (Negative); Crystals Negative HPF (Negative); Epithelial Cells Rare HPF (Negative); Mucus Negative (Negative); Other Cells Negative (Negative); WBC 0-2 HPF (0-5)
== END 2024-01-04 18:10 ==
LOC: LBN 18:09
PROVIDERS: PCP Nurse Practitioner Family; Visit Provider Nurse Practitioner Family
DX: R30.0 Dysuria (principal); R10.31 Right lower quadrant pain; R10.32 Left lower quadrant pain
CPT/HCPCS: 81003; 81015

== ENCOUNTER 2024-10-25 04:12 | Outpatient (CLI) | payer MEDICARE, SELFPAY ==
[2024-10-25 12:28] LABS: Anion Gap 7.4 mmol/L (3-11); BUN 15 mg/dL (7-18); CO2 28.6 mmol/L (21.0-32.0); Calcium 9.6 mg/dL (8.5-10.1); Chloride 101 mmol/L (98-107); Estimated GFR 93.55 (mL/min/1.73m2); Glucose 102 mg/dL (74-106); Potassium 4.0 mmol/L (3.5-5.1); Sodium 137 mmol/L (136-145)
[2024-10-25 12:36] LABS: Hemoglobin A1C 5.6 % (<5.7)
== END 2024-10-25 04:13 | disposition home or self-care (01) ==
LOC: LOS 04:12
PROVIDERS: PCP Nurse Practitioner Family; Visit Provider Nurse Practitioner Family
DX: R73.03 Prediabetes (principal)
CPT/HCPCS: 36415; 80048; 83036

== ENCOUNTER 2024-11-07 02:11 | Outpatient (CLI) | payer MEDICARE, SELFPAY ==
--- NOTE | 2024-11-07 07:00 | DI.MAMMO_ITS ---
Exam(s) MAMMO SCREENING EXAM: MAMMO SCREENING CLINICAL HISTORY: screening,z12.39 TECHNIQUE: Bilateral full field digital CC and MLO mammographic images were obtained with 3D tomosynthesis and utilizing computer aided detection (CAD). COMPARISON: Comparison is made with prior examinations. FINDINGS: Masses/Architectural Distortion: No suspicious masses or areas of architectural distortion are present. Microcalcifications: No suspicious pleomorphic-type are seen. Skin Thickening/Nipple Retraction: None. IMPRESSION: 1. No significant interval change with no specific features of malignancy noted. 2. Unless there is more urgent need, screening mammography is recommended, as per [employer] guidelines. BI-RADS Category 1 - Negative Breast Density - Category B - There are scattered areas of fibroglandular density. Breast density Category C or D implies that the patient has dense breast tissue. Dense breast tissue can make it harder to find cancer on a mammogram. Dense breast tissue is also associated with an increased risk of breast cancer. This information about the result of the mammogram report was provided to the patient to raise their awareness. Use this report when you speak with the patient about their risks for breast cancer, which includes their family history. At that time, you may recommend additional screening tests (Ultrasound or MRI) as these tests may add significant information. A negative radiographic report should not delay biopsy if a dominant or clinically suspicious mass is present. Up to ten percent of cancers are not identified on mammography. A negative report may reinforce clinical impression. Adenosis and dense breasts may obscure an underlying neoplasm. False positive reports average 6 to 10%. Patient will receive a letter notifying them of these results.
== END 2024-11-07 02:31 ==
LOC: DI 02:12
PROVIDERS: PCP Nurse Practitioner Family; Visit Provider Nurse Practitioner Family
DX: Z12.31 Encounter for screening mammogram for malignant neoplasm of breast (principal); R92.323 Mammographic fibroglandular density, bilateral breasts
CPT/HCPCS: 77063; 77067

== ENCOUNTER 2024-11-09 03:05 | Outpatient (CLI) | payer MEDICARE, SELFPAY ==
--- NOTE | 2024-11-09 06:00 | DI.DEXA_ITS ---
Exam(s) XR DEXA BONE DENSITY W/WO KARINA EXAM: XR DEXA BONE DENSITY W/WO KARINA CLINICAL HISTORY: reassess osteopenia,postmenopausal status,z78.0 TECHNIQUE: COMPARISON: CR XR DEXA BONE DENSITY W/WO KARINA from 01/02/2022 FINDINGS: Lateral Spine Image: Unremarkable. No compression deformities identified. Left hip: Total T-Score: -1.3. This compares to -1.6 on the prior examination. Total Z-Score: 0.5 T- and Z-scores: The findings are consistent with osteopenia. Lumbar Spine: Total T-Score: 1.7. This compares to 0.7 on the prior examination. Total Z-Score: 4.1 T- and Z-scores: Within normal limits. IMPRESSION: No evidence of osteoporosis.
== END 2024-11-09 03:25 ==
LOC: DI 03:05
PROVIDERS: PCP Nurse Practitioner Family; Visit Provider Nurse Practitioner Family
DX: Z13.820 Encounter for screening for osteoporosis (principal); Z78.0 Asymptomatic menopausal state
CPT/HCPCS: 77080

== ENCOUNTER → 2024-11-27 09:33 | Outpatient (BNVA) | payer MEDICARE, SELFPAY | PROVIDERS: PCP Nurse Practitioner Family; Referring Provider Nurse Practitioner Family; Visit Provider Student in an Organized Health Care Education/Training Program | DX: Z12.11 Encounter for screening for malignant neoplasm of colon (principal) | CPT/HCPCS: S0285 ==

== ENCOUNTER 2024-12-13 07:45 | Day surgery (SDC) | payer MEDICARE, SELFPAY ==
[2024-12-13 08:07] VITALS: BP 162/59; PULSE 70; RESP 16; TEMP 36.2; O2SAT 99
[2024-12-13] MEDS: Lactated Ringers 1,000 ML 80 ML IV (08:35)
--- NOTE | 2024-12-13 08:48 | W.ANESPRE ---
General Info Date of Service Date Performed: 12/13/24 Height: 4 ft 10 in Weight: 74.6 kg Body Mass Index (BMI): 34.3 Surgical Procedure: Operation Date: 12/13/24 09:35 Proposed Procedure Side Surgeon p Colonoscopy Jennifer Li MD Meds Allergies and Home Medications Allergies Allergy/AdvReac Type Severity Reaction Status Date / Time Penicillins Allergy Intermediate Skin Rash Unverified 12/13/24 08:02 Home Medication ?Medication ?Instructions ?Recorded ascorbic acid 1,000 1 ea PO DAILY PRN PRN 05/12/18 iw-qerdqdxjrlfp-ulfzkmle powder effervescent pack (Emergen-C) calcium carbonate (Tums) 600 mg PO PRN PRN 05/12/18 cholecalciferol (vitamin D3) 10 800 unit PO DAILY 05/14/22 mcg (400 unit) capsule acetaminophen 500 mg capsule 500 mg PO QID PRN 08/04/23 aspirin 81 mg chewable tablet 81 mg PO DAILY 08/12/23 mecobalamin (vitamin B12) 500 mcg 500 mcg PO DAILY 08/12/23 chewable tablet losartan 100 mg tablet 100 mg PO DAILY #90 tabs 04/03/24 triamcinolone acetonide 0.1 % 1 applic topical DAILY PRN rash 04/03/24 topical cream #80 grams atorvastatin 40 mg tablet 40 mg PO DAILY #90 tabs 09/28/24 amlodipine 10 mg tablet 10 mg PO DAILY #90 tabs 10/19/24 clotrimazole 1 % topical cream 1 applic topical BID #45 grams 10/19/24 bisacodyl 5 mg tablet,delayed 5 mg PO ONCE colonscopy bowel prep 11/27/24 release (Dulcolax (bisacodyl)) #4 tabs polyethylene glycol 3350 17 238 g PO ONCE colonoscopy prep 11/27/24 gram/dose oral powder #238 grams psyllium seed (sugar) oral powder 2 tsp PO DAILY 11/27/24 (Metamucil (sugar) oral powder) Current Visit Medications: Current Medications Generic Name Dose Route Start Last Admin Trade Name Freq PRN Reason Stop Dose Admin Ringer's Solution 1,000 mls @ 80 mls/hr 12/13/24 06:00 12/13/24 08:35 IV 12/13/24 23:59 80 mls/hr INFUSION PADMA Administration IV Miscellaneous Supplies 1 each 12/13/24 06:00 Iv Access IV 12/13/24 23:59 DIRECTED PADMA Sodium Chloride 0 ml 12/13/24 06:00 Normal Saline Flush 10 Ml Syr IV 12/13/24 23:59 PRN PRN Sodium Chloride 0 ml 12/13/24 06:00 Normal Saline 10 Ml Vial IJ 12/13/24 23:59 DIRECTED PRN Sterile Water 0 ml 12/13/24 06:00 Water,Injection,Sterile 10 Ml Vial IJ 12/13/24 23:59 DIRECTED PRN PFSH Active Problems Active Problems: Problem Status Onset Code History of TIA (transient ischemic attack) Chronic ~07/2023 Z86.73 Coronary artery disease Chronic I25.10 YADI (obstructive sleep apnea) Chronic G47.33 Bilateral carotid artery stenosis Chronic I65.23 Essential hypertension Chronic I10 Primary open angle glaucoma (POAG) of left eye, mild stage Chronic H40.1121 Hyperlipemia Chronic E78.5 Prediabetes Chronic R73.03 GERD (gastroesophageal reflux disease) Chronic K21.9 Osteopenia Chronic M85.80 Obesity Chronic E66.9 Seasonal allergic rhinitis Chronic J30.2 Diverticulosis of colon Chronic K57.30 Medical History Medical History TIA (transient ischemic attack) (~07/2023) Takotsubo cardiomyopathy Surgical History Surgical History History of left-sided carotid endarterectomy (02/15/13) Status post left knee replacement (09/10/15) Status post right knee replacement (05/17/18) History of bilateral tubal ligation (1974) S/P abdominal hysterectomy (~2002) Tobacco Smoking/Tobacco Use Status: Never Passive smoking exposure: Yes Alcohol Alcohol Intake: current Alcohol intake frequency: a few times a week Alcohol type: beer and wine Substance Use Substance use: Never Vital Signs and Lab Results Vital Signs Most Recent Vital Signs in EMR: Most Recent Vital Signs Temp Pulse Resp BP Pulse Ox 36.2 C L 70 16 162/59 H 99 12/13/24 08:07 12/13/24 08:07 12/13/24 08:07 12/13/24 08:07 12/13/24 08:07 Imaging and Studies Imaging and Studies Study information below may be from another EMR and interpreted by another provider. Please see original notes in EMR for more complete details. EKG Summary: 08/04/23: Exam: Resting ECG Reason for Exam: Tingling in Left Hand Patient Location: E HR:75 bpm ECG Measurements Heart Rate 75 AXIS ME 179 P 47 QRSd 101 QRS -24 QT 400 T3 QTc 445 Conclusion Sinus rhythm...normal P axis, V-rate 60- 99 Atrial premature complex...SV complex w/ short R-R interval Low voltage, extremity and precordial leads...extremity<0.5mV, precordial<1.0mV Stress Test Summary: Patient Name: BRITTANY HERRERA Unit #: [id number] Loc: Ordering Provider: Dano Helm Status: [facility] Primary Care Provider: Dano Helm Date of Exam: 08/11/17 Sex: F : 1950 Age: 67 Exam(s) [id number] NM:MPI Resting & Stress GRP *[facility]* *[facility]* [address] [place] [address] Myocardial Perfusion Imaging - SPECT Girish protocol Date of study: 08/11/2017 *PATIENT PRESENTATION* Height: 149.9cm (59in) Blood Pressure: Weight: 75kg (165lb) BSA: 1.8m^2 Referring physician: Lauren Fowler Ordering physician: Dano Helm Impressions: Negative stress test after maximal exercise. Summary: 1. Myocardial perfusion imaging: No myocardial perfusion defects noted. 2. The calculated left ventricular ejection fraction after stress: 67%. LV global systolic function is normal. No left ventricular regional motion abnormality. 3. Stress ECG conclusions: The stress ECG is negative. Buckley treadmill score: 5. This score predicts a low risk of cardiac events. 4. Stress: The target heart rate was achieved. The heart rate response to stress is normal. There is resting hypertension with a blunted response to stress. The patient experienced no chest pain during stress. Exercise capacity is average for age. Indication: R06.02. History: REASON FOR VISIT: SHORTNESS OF BREATH WITH ACTIVITY. OCCASIONAL PALPITATIONS. PT STATES SHE WAS DIAGNOSED TAK[place]UBO CARDIOMYOPATHY ABOUT 8 YEARS AGO. Risk factors: Family history of coronary artery disease. Hypertension. Obesity. Dyslipidemia. Cholesterol: 165mg/dl. HDL: 58mg/dl. LDL: 94mg/dl. Triglycerides: 98mg/dl. ALLERGIES: PENICILLIN. MEDICATIONS: ASPIRIN 81 MG DAILY. ATORVASTATIN CALCIUM 10 MG DAILY. DICLOFENAC SODIUM 75 MG DAILY. HYDROCHLOROTHIAZIDE 25 MG DAILY. LISINOPRIL 40 MG DAILY. MISOPROSTOL 200 MCG DAILY. MVI 1 TAB DAILY. NAPROXEN SODIUM 220 MG BID PRN. RANITIDINE HCL 75 MG DAILY PRN. Imaging Technique: Protocol: Girish protocol. Acquisition: Gated SPECT; 1 day - rest/stress. The patient was imaged in the supine position. Attenuation correction used. Isotope administration: - Rest. Tc[99m]-sestamibi. Dose: 10.5mCi. Injection time: 10:00 AM. Injection to stress time: 00:45. - Stress. Tc[99m]-sestamibi. Dose: 32mCi. Injection time: 12:04 PM. 1-2 min before end of exercise Baseline ECG: SINUS RHYTHM. HR 65 BPM. Normal ECG. Stress protocol: + +---+ + !Stage !HR !BP (mmHg) ! + +---+ + !Baseline supine !65 !168/90 (116)! + +---+ + !Baseline standing !67 !165/86 (112)! + +---+ + !Stage I; 1.7mph, 10degrees; 3 min !118!176/88 (117)! + +---+ + !Stage II; 2.5mph, 12degrees; 3 min!129! ! + +---+ + !Peak stress !150! ! + +---+ + !Recovery; 1 min !98 !176/80 (112)! + +---+ + !Recovery; 3 min !75 !142/78 (99) ! + +---+ + !Recovery; 6 min !75 !140/74 (96) ! + +---+ + * Stress results: Maximal heart rate during stress was 150bpm (99% of maximal predicted heart rate). The maximal predicted heart rate was 152bpm. The target heart rate was achieved. The heart rate response to stress is normal. There is resting hypertension with a blunted response to stress. The rate-pressure product for the peak heart rate and blood pressure was 84764kv Hg/min. The patient experienced no chest pain during stress. Exercise capacity is average for age. Stress ECG: TREADMILL PORTION OF STRESS TEST ENDED IN 5 MINUTES & 12 SECONDS DUE TO FATIGUE. NORMAL HEART RATE AND NORMAL BLOOD PRESSURE RESPONSE TO EXERCISE. MAX HR = 150 % OF TARGET = 98 PVC X1. APPROXIMATE METS ACHIEVED = 7.05 NO ANGINA. NO SIGNIFICANT ST SEGMENT CHANGES NOTED, ALTHOUGH DIFFICULT TO ASCERTAIN DUE TO FREQUENT ARTIFACT. AVERAGE FUNCTIONAL CAPACITY FOR EXERCISE. The stress ECG is negative. Buckley treadmill score: 5. This score predicts a low risk of cardiac events. Myocardial perfusion: Imaging information: gated. The image quality was good. Left ventricular size is normal. No myocardial perfusion defects noted. Ventricular Function (Wall Motion): The calculated left ventricular ejection fraction after stress: 67%. LV global systolic function is normal. No left ventricular regional motion abnormality. Study data: Lauren Fowler MD supervised and was readily available during the procedure. This study was interpreted by [facility]. Study status: Routine. Consent: The risks, benefits, and alternatives to the procedure were explained to the patient and informed consent was obtained. Procedure: Initial setup. A baseline ECG was recorded. Surface ECG leads and manual cuff blood pressure measurements were monitored. Heart sounds: Normal. Lung sounds: Normal. Treadmill exercise testing was performed using the Girish protocol. Study completion: All catheters inserted during the procedure were removed. The patient tolerated the procedure well and was discharged from the lab. Discharge: The patient left the laboratory in stable condition. Birthdate: Patient birthdate: 1950. Sex: Gender: female. Study date: Study date: 08/11/2017. Study time: 09:30 AM. Signature Documentation: - The imaging portion of this study was interpreted by Nuclear Membership Sales Representative Lauren Fowler MD. - The imaging portion of this study was interpreted by Nuclear Radiologist Nakul Zendejas MD. - The Stress ECG portion of this study was interpreted by Lauren Fowler MD. Electronically signed by Lauren Fowler 08/11/2017 15:24 Ordering provider: Dano Helm CC: JULIA MCDONALD,PhD,LAUREN Dictated by: Nakul Zendejas M.D. [id number] <Electronically signed by Nakul Zendejas M.D.>08/11/17 8114 Disclaimer: The [facility] radiologist is signing only the Nuclear Medicine MPI Imaging exam portion of the report. Transcribed by: Jeferson Ruiz08/11/17 0526 This is privileged, confidential information intended only for the provider named. Any use or distribution by any person other than this provider is strictly prohibited. If you receive this report in error, please notify us immediately at [phone] and return the original report to us at the address above. Thank-you. Carotid Artery Summary:: 05/03/23: IMPRESSION: 1. 50 percent stenosis seen in the proximal right internal carotid artery. 2. Mild calcification in the left cervical internal carotid artery but no significant stenosis. 3. Chronic sphenoid sinusitis. Anesthesia Assessment and Plan Anesthesia History Personal History: No History of Anesthesia Complications Family History: No Family History of Anesthesia Complications Exercise Tolerance Exercise Tolerance: Metabolic Equivalents>4 Pertinent Negatives Pertinent Negatives: No Major Cardiovascular Symptoms or Complaints and No Major Pulmonary Symptoms or Complaints Cardiac & Pulmonary Exam Cardiac Exam: Normal S1/S2 Heart Sounds Pulmonary Exam: Clear Bilateral Breath Sounds Implantable Cardiac Device Does patient have a Pacemaker or an ICD?: No Airway Exam Known Difficult Airway: No Mallampati Class: 3 Mouth Opening: Normal (> 3cm) Thyromental Distance: Greater than 3 cm Neck Range of Motion: Full ROM Neck Circumference: Normal Teeth Condition: Normal Dentition and Generalized Poor Dentition ASA Classification ASA Score: ASA 3 Emergency Case?: No NPO Status NPO Status: NPO Clears >2 hours, Solids >8 hours Anesthesia Plan Resuscitation Status: Full Code Anesthesia Technique: General Anesthesia Airway Planned: Natural Airway Monitors Used: Standard Monitors
[2024-12-13 08:51] VITALS: BMI 34.3
--- NOTE | 2024-12-13 09:22 | BOWEL_PTH ---
PATIENT: Madie Woodall LOC: [facility] U#:[id number] AGE/SX: 74/F ROOM: RE12/13/[address]: Jennifer Li : 1950 BED: DIS: 12/13/2024 SPEC #: [id number] RECD: 12/13/24 12:35 STATUS: HERBIE RE #: [id number] HORACE: 12/13/24 09:[address]: Jennifer Li DEPT: Surgical Specimen RECD BY: Sara Rousseau ENTERED: 12/13/24 12:36 SP TYPE: Bowel OTHR DR: DAVID Roman Tissues: 1 - BIOPSY BOWEL Procedures: GROSS AND MICRO LEVEL 4 Comments: [id number]
[2024-12-13 09:32] VITALS: BP 106/67; PULSE 68; RESP 16; TEMP 36.2; O2SAT 96
--- NOTE | 2024-12-13 09:32 | W.COLOREPORT ---
Date of service: 12/13/24 Time of Service: 09:34 Colonoscopy Report Date of procedure: 12/13/24 Pre-op diagnosis general: Screening colonoscopy Post-op diagnosis procedure note: same Procedure: Colonoscopy with biopsy. Surgeon: Jennifer Li Anesthesia Type: General:No Airway Estimated blood loss (mL): 2 Pathology: other (Colon biopsy at 20cm) Complications: None Disposition: PACU Indications: Patient is a 74-year-old female who presented for a screening colonoscopy. She has no family history of colon cancer but does have a previous history of diverticulosis. Prep: Miralax/Dulcolax Procedure Start Time: :05 Procedure End Time: : Retraction Time: 12 Findings: Colonoscopy performed without difficulty. Evidence of rectosigmoid diverticulosis. Patchy erythema of the colon at 20 cm and intermittently distally. A cold forcep biopsy of 1 of these areas was performed. Procedure Description: Informed consent was obtained. The patient was taken to the endoscopy suite and placed in the left lateral decubitus position. After adequate intravenous sedation, digital rectal exam was performed, which was normal. A colonoscope was inserted into the rectum and negotiated to the cecum. The ileocecal valve and appendiceal orifice were identified. The entire colonic mucosa was then carefully circumferentially inspected upon slow withdrawal of the scope. The cecum, ascending, transverse, and descending colon were all normal. In the sigmoid colon, there was evidence of patchy erythema which was biopsied at 20cm. The patchy erythema continued intermittently distally to the rectum. There was also evidence of rectosigmoid diverticulosis. Retroflexion in the rectum was unremarkable. The patient tolerated the procedure well with no complications. Postoperatively, the patient was transferred to the recovery room in stable condition. [place] Bowel Prep [place] Bowel Prep Right Colon: 3 Left Colon: 3 Transverse Colon: 3 Total Score: 9
--- NOTE | 2024-12-13 09:51 | W.ANESPOSTOP ---
Postoperative Evaluation Date, Time and Location Date Performed: 12/13/24 Time Performed: 09:33 Patient Location: Day Surgery Unit Vital Signs Most Recent Imported Vital Signs: Most Recent Vital Signs Temp Pulse Resp BP Pulse Ox 36.2 C L 68 16 106/67 96 12/13/24 09:32 12/13/24 09:32 12/13/24 09:32 12/13/24 09:32 12/13/24 09:32 Pain Score Most Recent Pain Score: Most Recent Pain Score Pain Level 0 12/13/24 09:32 Assessment Mental Status: Awake (Alert & Oriented to Patient Baseline) Airway and Respiratory Function: Patent airway with normal (patient baseline) respiratory exam Cardiovascular Function: Hemodynamically Stable Hydration Status: Adequately Hydrated Nausea & Vomiting: No Nausea or Vomiting Pain: Pt. Denies Any Pain Peripheral Nerve Block: Patient did not receive a nerve block
[2024-12-13 10:01] VITALS: BP 115/63; PULSE 63; RESP 16; TEMP 36.3; O2SAT 100
== END 2024-12-13 10:25 | disposition home or self-care (01) ==
PROVIDERS: PCP Nurse Practitioner Family; Visit Provider Student in an Organized Health Care Education/Training Program
PROC: 0DJD8ZZ Inspection of Lower Intestinal Tract, Via Natural or Artificial Opening Endoscopic (ICD-10-PCS; CPT 45378; principal; 2024-12-13 09:30)
DX: Z12.11 Encounter for screening for malignant neoplasm of colon (principal); K57.30 Diverticulosis of large intestine without perforation or abscess without bleeding
CPT/HCPCS: 45380; 88305; J2003; J2704